=== PATIENT | female | born 1940 | race Caucasian/White ===

== ENCOUNTER 2017-09-10 13:59 | Observation (INO) | payer MEDICARE, BC ==
[2017-09-10] MEDS ORDERED: SODIUM CHLORIDE 0.9% 1,000 ML IV STA (14:17)
[2017-09-10] MEDS ORDERED: SODIUM CHLORIDE 0.9% 500 ML IV STA (14:17)
[2017-09-10 14:32] LABS: Glucose,Whole Blood 96 mg/dL (75-99)
--- NOTE | 2017-09-10 14:40 | ED ---
General Adult HPI - General Chief complaint: Dizziness Stated complaint: Dizziness Time Seen by Provider: 09/10/17 14:17 Source: patient, RN notes reviewed, old records reviewed Mode of arrival: wheelchair Limitations: no limitations - History of Present Illness Initial comments: This is a 76-year-old female the ER for evaluation. Patient presents for evaluation regards to dizziness, ataxia with ambulation. Patient is no medical history states when she walks he feels additional topple over can maintain her balance. The room was not spinning and patient denies headache no nausea or vomiting - Related Data Home Medications Medication Instructions Recorded Confirmed Aspirin EC [Ecotrin] 325 mg PO DAILY PRN 09/10/17 09/10/17 Omeprazole 40 mg PO DAILY 09/10/17 09/10/17 Allergies Allergy/AdvReac Type Severity Reaction Status Date / Time No Known Allergies Allergy Verified 09/10/17 14:22 Review of Systems ROS Statement: Those systems with pertinent positive or pertinent negative responses have been documented in the HPI. ROS Other: All systems not noted in ROS Statement are negative. Past Medical History Past Medical History: No Reported History History of Any Multi-Drug Resistant Organisms: None Reported Past Surgical History: Section, Hysterectomy Past Psychological History: No Psychological Hx Reported Smoking Status: Never smoker Past Alcohol Use History: None Reported Past Drug Use History: None Reported General Exam - General Exam Comments Initial Comments: Heel parra, finger-nose negative, Limitations: no limitations General appearance: alert, in no apparent distress Head exam: Present: atraumatic, normocephalic, normal inspection Eye exam: Present: normal appearance, PERRL, EOMI. Absent: scleral icterus, conjunctival injection, periorbital swelling ENT exam: Present: normal exam, mucous membranes moist Neck exam: Present: normal inspection. Absent: tenderness, meningismus, lymphadenopathy Respiratory exam: Present: normal lung sounds bilaterally. Absent: respiratory distress, wheezes, rales, rhonchi, stridor Cardiovascular Exam: Present: regular rate, normal rhythm, normal heart sounds. Absent: systolic murmur, diastolic murmur, rubs, gallop, clicks GI/Abdominal exam: Present: soft, normal bowel sounds. Absent: distended, tenderness, guarding, rebound, rigid Extremities exam: Present: normal inspection, full ROM, normal capillary refill. Absent: tenderness, pedal edema, joint swelling, calf tenderness Back exam: Present: normal inspection Neurological exam: Present: alert, oriented X3, CN II-XII intact Psychiatric exam: Present: normal affect, normal mood Skin exam: Present: warm, dry, intact, normal color. Absent: rash Course Vital Signs 09/10/17 09/10/17 09/10/17 14:13 15:15 16:00 Temperature 99.0 F Pulse Rate 67 79 73 Respiratory 16 16 Rate Blood Pressure 169/92 181/85 196/91 O2 Sat by Pulse 99 97 99 Oximetry 09/10/17 16:14 Temperature Pulse Rate 80 Respiratory 19 Rate Blood Pressure 198/89 O2 Sat by Pulse 98 Oximetry - Reevaluation(s) Reevaluation #1: 09/10/17 16:35 Patient is able to walk without ataxia EKG Findings - EKG Comments: EKG Findings:: EKG shows sinus rhythm rate of 65, DE 154, QRS 84, QTC 4:30 Medical Decision Making - Medical Decision Making 76 female the ER for evaluation of ataxia and dizziness. Patient be admitted for neurological observation, new onset high blood pressure which she will control and patient will neurological evaluation - Lab Data Result diagrams: 09/10/17 14:30 09/10/17 14:30 Lab Results 09/10/17 09/10/17 09/10/17 Range/Units 14:29 14:30 14:30 WBC 6.6 (3.8-10.6) k/uL RBC 4.53 (3.80-5.40) m/uL Hgb 11.9 (11.4-16.0) gm/dL Hct 37.3 (34.0-46.0) % MCV 82.4 (80.0-100.0) fL MCH 26.3 (25.0-35.0) pg MCHC 31.9 (31.0-37.0) g/dL RDW 14.9 (11.5-15.5) % Plt Count 351 (150-450) k/uL Neutrophils % 69 % Lymphocytes % 20 % Monocytes % 8 % Eosinophils % 1 % Basophils % 1 % Neutrophils # 4.6 (1.3-7.7) k/uL Lymphocytes # 1.3 (1.0-4.8) k/uL Monocytes # 0.5 (0-1.0) k/uL Eosinophils # 0.0 (0-0.7) k/uL Basophils # 0.1 (0-0.2) k/uL PT (9.0-12.0) sec INR (<1.2) APTT (22.0-30.0) sec Sodium (137-145) mmol/L Potassium (3.5-5.1) mmol/L Chloride (98-107) mmol/L Carbon Dioxide (22-30) mmol/L Anion Gap mmol/L BUN (7-17) mg/dL Creatinine (0.52-1.04) mg/dL Est GFR (MDRD) Af Amer (>60 ml/min/1.73 sqM) Est GFR (MDRD) Non-Af (>60 ml/min/1.73 sqM) Glucose (74-99) mg/dL POC Glucose (mg/dL) 96 (75-99) mg/dL POC Glu [employer]ping [employer] Jessa Bosch Calcium (8.4-10.2) mg/dL Phosphorus (2.5-4.5) mg/dL Magnesium (1.6-2.3) mg/dL Total Bilirubin (0.2-1.3) mg/dL AST (14-36) U/L ALT (9-52) U/L Alkaline Phosphatase (38-126) U/L Total Creatine Kinase 99 (30-135) U/L CK-MB (CK-2) 1.2 (0.0-2.4) ng/mL CK-MB (CK-2) Rel Index 1.2 Troponin I <0.012 (0.000-0.034) ng/mL Total Protein (6.3-8.2) g/dL Albumin (3.5-5.0) g/dL Urine Color Urine Appearance (Clear) Urine pH (5.0-8.0) Ur Specific [place] (1.001-1.035) Urine Protein (Negative) Urine Glucose (UA) (Negative) Urine Ketones (Negative) Urine Blood (Negative) Urine Nitrite (Negative) Urine Bilirubin (Negative) Urine Urobilinogen (<2.0) mg/dL Ur Leukocyte Esterase (Negative) Urine RBC (0-5) /hpf Urine WBC (0-5) /hpf Ur Squamous Epith Cells (0-4) /hpf Urine Mucus (None) /hpf 09/10/17 09/10/17 09/10/17 Range/Units 14:30 14:30 15:10 WBC (3.8-10.6) k/uL RBC (3.80-5.40) m/uL Hgb (11.4-16.0) gm/dL Hct (34.0-46.0) % MCV (80.0-100.0) fL MCH (25.0-35.0) pg MCHC (31.0-37.0) g/dL RDW (11.5-15.5) % Plt Count (150-450) k/uL Neutrophils % % Lymphocytes % % Monocytes % % Eosinophils % % Basophils % % Neutrophils # (1.3-7.7) k/uL Lymphocytes # (1.0-4.8) k/uL Monocytes # (0-1.0) k/uL Eosinophils # (0-0.7) k/uL Basophils # (0-0.2) k/uL PT 9.4 (9.0-12.0) sec INR 0.9 (<1.2) APTT 24.0 (22.0-30.0) sec Sodium 140 (137-145) mmol/L Potassium 4.5 (3.5-5.1) mmol/L Chloride 105 (98-107) mmol/L Carbon Dioxide 26 (22-30) mmol/L Anion Gap 9 mmol/L BUN 20 H (7-17) mg/dL Creatinine 1.04 (0.52-1.04) mg/dL Est GFR (MDRD) Af Amer >60 (>60 ml/min/1.73 sqM) Est GFR (MDRD) Non-Af 51 (>60 ml/min/1.73 sqM) Glucose 93 (74-99) mg/dL POC Glucose (mg/dL) (75-99) mg/dL POC Glu [employer]ping [employer] ID Calcium 9.9 (8.4-10.2) mg/dL Phosphorus 3.8 (2.5-4.5) mg/dL Magnesium 2.3 (1.6-2.3) mg/dL Total Bilirubin 0.4 (0.2-1.3) mg/dL AST 24 (14-36) U/L ALT 26 (9-52) U/L Alkaline Phosphatase 84 (38-126) U/L Total Creatine Kinase (30-135) U/L CK-MB (CK-2) (0.0-2.4) ng/mL CK-MB (CK-2) Rel Index Troponin I (0.000-0.034) ng/mL Total Protein 6.8 (6.3-8.2) g/dL Albumin 3.9 (3.5-5.0) g/dL Urine Color Colorless Urine Appearance Clear (Clear) Urine pH 5.5 (5.0-8.0) Ur Specific [place] 1.004 (1.001-1.035) Urine Protein Negative (Negative) Urine Glucose (UA) Negative (Negative) Urine Ketones Negative (Negative) Urine Blood Negative (Negative) Urine Nitrite Negative (Negative) Urine Bilirubin Negative (Negative) Urine Urobilinogen <2.0 (<2.0) mg/dL Ur Leukocyte Esterase Trace H (Negative) Urine RBC 1 (0-5) /hpf Urine WBC 2 (0-5) /hpf Ur Squamous Epith Cells 1 (0-4) /hpf Urine Mucus Rare H (None) /hpf - Radiology Data Radiology results: report reviewed (CT brain is negative for acute disease), image reviewed Disposition Clinical Impression: Dizziness, CVA (cerebral vascular accident), Hypertensive emergency, Ataxia Disposition: ADMITTED IP TO THIS [facility] Condition: Fair Instructions: Dizziness (ED) Referrals: Dony Luis MD [Primary Care Provider] - 1-2 days
[2017-09-10 14:50] LABS: Basophils # (A) 0.1 k/uL (0-0.2); Basophils % (A) 1 %; Eosinophils % (A) 1 %; HCT 37.3 % (34.0-46.0); HGB 11.9 gm/dL (11.4-16.0); Lymphocytes # (A) 1.3 k/uL (1.0-4.8); Lymphocytes % (A) 20 %; MCH 26.3 pg (25.0-35.0); MCHC 31.9 g/dL (31.0-37.0); MCV 82.4 fL (80.0-100.0); Mean Platelet Volume 7.3; Monocytes # (A) 0.5 k/uL (0-1.0); Monocytes % (A) 8 %; Neutrophils # (A) 4.6 k/uL (1.3-7.7); Neutrophils % (A) 69 %; Platelet Count 351 k/uL (150-450); RBC 4.53 m/uL (3.80-5.40); RDW 14.9 % (11.5-15.5); WBC 6.6 k/uL (3.8-10.6)
--- NOTE | 2017-09-10 14:54 | CT ---
EXAMINATION TYPE: CT brain wo con DATE OF EXAM: 09/10/2017 HISTORY: Weakness and dizziness since yesterday. CT DLP: 1123 mGycm. Automated Exposure Control for Dose Reduction was Utilized. TECHNIQUE: CT scan of the head is performed without contrast. COMPARISON: CT scan of brain March 08, 2013 FINDINGS: There is no acute intracranial hemorrhage or midline shift identified. There is diffuse v entricular and sulcal prominence consistent with diffuse age-related cerebral atrophy. There is low- attenuation in the periventricular white matter consistent with chronic small vessel ischemic change. The globes are intact and the visualized sinuses are clear. IMPRESSION: No acute intracranial hemorrhage or midline shift. There is mild to moderate diffuse ag e-related cerebral atrophy and chronic small vessel ischemic change redemonstrated with probable slig ht progression from 2013 [address] noted.
[2017-09-10 14:56] LABS: ALT 26 U/L (9-52); AST 24 U/L (14-36); Albumin 3.9 g/dL (3.5-5.0); Alkaline Phosphatase 84 U/L (38-126); Anion Gap 9 mmol/L; Blood Urea Nitrogen 20 mg/dL (7-17); Calcium 9.9 mg/dL (8.4-10.2); Carbon Dioxide 26 mmol/L (22-30); Chloride 105 mmol/L (98-107); Glucose 93 mg/dL (74-99); Phosphorus 3.8 mg/dL (2.5-4.5); Potassium 4.5 mmol/L (3.5-5.1); Sodium 140 mmol/L (137-145); Total Bilirubin 0.4 mg/dL (0.2-1.3); Total Protein 6.8 g/dL (6.3-8.2)
[2017-09-10 14:57] LABS: INR 0.9 (<1.2); Prothrombin Time 9.4 sec (9.0-12.0)
[2017-09-10 15:13] LABS: Creatine Kinase 99 U/L (30-135)
[2017-09-10 15:20] LABS: Appearance,Urine Clear (Clear); Bilirubin,Urine Negative (Negative); Blood,Urine Negative (Negative); Color,Urine Colorless; Glucose,Urine (UA) Negative (Negative); Ketones,Urine Negative (Negative); Leukocyte Esterase,Urine Trace (Negative); Mucus,Urine Rare /hpf; PH, Urine 5.5 (5.0-8.0); Protein,Urine Negative (Negative); RBC,Urine 1 /hpf (0-5); Specific Gravity,Urine 1.004 (1.001-1.035); Squamous Epithelial Cell,Urine 1 /hpf (0-4); Urobilinogen,Urine <2.0 mg/dL (<2.0); WBC,Urine 2 /hpf (0-5)
[2017-09-10 15:25] LABS: Creatine Kinase MB 1.2 ng/mL (0.0-2.4); Troponin I <0.012 ng/mL (0.000-0.034)
[2017-09-10] MEDS ORDERED: LABETALOL 5 MG/ML VIAL MDV IVP STA (16:14)
[2017-09-10] MEDS ORDERED: ASPIRIN 325 MG TAB PO STA (16:14)
[2017-09-10] MEDS: SODIUM CHLORIDE 0.9% 1,000 ML IV SCH (16:20)
[2017-09-10] MEDS: METOPROLOL TARTRATE 50 MG TAB PO SCH (18:29)
--- NOTE | 2017-09-10 20:57 | US ---
EXAMINATION TYPE: US carotid duplex BILAT DATE OF EXAM: 09/10/2017 COMPARISON: NONE CLINICAL HISTORY: Stenosis. Dizziness EXAM MEASUREMENTS: RIGHT: Peak Systolic Velocity (PSV) cm/sec ----- Right CCA: 62.2 ----- Right ICA: 136.8 ----- Right ECA: 81.0 ICA/CCA ratio: 2.2 RIGHT: End Diastole cm/sec ----- Right CCA: 19.3 ----- Right ICA: 41.2 ----- Right ECA: 13.9 LEFT: Peak Systolic Velocity (PSV) cm/sec ----- Left CCA: 83.2 ----- Left ICA: 89.8 ----- Left ECA: 79.9 ICA/CCA ratio: 1.1 LEFT: End Diastole cm/sec ----- Left CCA: 20.5 ----- Left ICA: 35.9 ----- Left ECA: 11.7 VERTEBRALS (direction of flow): Right Vertebral: Antegrade Left Vertebral: Antegrade Rhythm: Normal Bilateral intimal thickening, elevated velocity: right distal ICA, right ICA/CCA ratio 2.2. IMPRESSION: There is antegrade flow in the vertebral arteries. The images and measurements suggest 3 0-40% stenosis in the left internal carotid artery and 50-70% stenosis in the right internal carotid artery. Criteria for Assigning % of Stenosis / Diameter reduction (Estimation based on the indirect measurements of the internal carotid artery velocities (ICA PSV). 1. Normal (no stenosis)=ICA PSV < 125 cm/s: ratio < 2.0: ICA EDV<40 cm/s. 2. Less than 50% stenosis=ICA PSV < 125 cm/s: ratio < 2.0: ICA EDV<40 cm/s. 3. 50 to 69% stenosis=ICA PSV of 125 to 230 cm/s: ration 2.0 ? 4.0: ICA EDV 40-100 cm/s. 4. Greater than 70% stenosis to near occlusion= ICA PSV > 230 cm/s: ratio > 4.0: ICA EDV > 100 cm/s. 5. Near occlusion= ICA PSV velocities may be low or undetectable: variable ratio and ICA EDV. 6. Total occlusion=unable to detect flow.
[2017-09-11 06:13] LABS: Cholesterol 197 mg/dL (<200); HDL Cholesterol 53 mg/dL (40-60); LDL Cholesterol,Calculated 115 mg/dL (0-99); Triglycerides 146 mg/dL (<150)
[2017-09-11] MEDS: SODIUM CHLORIDE 0.9% 1,000 ML IV SCH (06:30)
[2017-09-11 08:38] VITALS: RESP 16
[2017-09-11] MEDS: METOPROLOL TARTRATE 50 MG TAB PO SCH (08:45)
[2017-09-11] MEDS ORDERED: ASPIRIN 325 MG TAB PO SCH (09:00)
[2017-09-11] MEDS ORDERED: PANTOPRAZOLE 40 MG TABLET PO SCH (09:00)
[2017-09-11 11:29] VITALS: PULSE 55; TEMP 98.3
--- NOTE | 2017-09-11 11:36 | P.HPIM ---
History of Present Illness H&P Date: 09/11/17 Chief Complaint: Ataxia HISTORY AND PHYSICAL AND DISCHARGE SUMMARY: This is a 76-year-old female patient of Dr. Luis with past medical history of gastroesophageal reflux. Patient gives history that she has had problems with balance since that lasted for about a half hour. She states her gait was staggering like she was drunk. She laid down and then it was fine. She states otherwise she has had no other difficulties. On Wednesday, she was out shopping with her friend and started having the same sensation again with staggering gait and her friend told her she needed to have it checked. She denies having any fall, dizziness is denied. She denies any weakness or 1 sided weakness. No lightheadedness. No numbness or tingling. No racing heart or palpitations. She denies headache. No shortness of breath cough or chest pain. She denies any fever or chills. Patient presented to [facility] emergency center with the above. Blood pressure was high and patient does not have history of hypertension. EKG was a sinus rhythm. CBC and electrolytes were within normal limits. Creatinine 1.04. Blood sugar was 96. Troponin was normal at 0.012. Liver function tests within normal limits. Urinalysis was negative. CT of the brain showed no acute intracranial hemorrhage or midline shift. Mild to moderate diffuse age-related history of atrophy and chronic small vessel ischemic change redemonstrated with probable slight progression since 2012. Carotid duplex suggests 30-40% stenosis in the left internal carotid artery and 50-7 in the right internal carotid artery. Patient was given aspirin, labetalol 20 mg IV push and started on IV fluids and admitted to the selective care unit and consult was requested with Dr. Yi from neurology. PT, OT and speech therapy evaluations requested. 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 HER-2 sons are staying with him right now but she needs to get home. She has been ambulating in her room with no further problems. She states she has never had elevated blood pressure before. Patient had repeat EKG done that showed sinus bradycardia. No atrial fibrillation noted. Triglycerides 146, cholesterol 197, LDL 1:15 and HDL 53. We have asked for echocardiogram and started the patient on amlodipine versus Lopressor and plan for discharge home today once echocardiogram has been done. Patient is agreeable to follow-up with vascular surgeon regarding carotid stenosis and also follow-up with Dr. Yi regarding possible TIA. Discharge Medication List Aspirin EC [Ecotrin] 325 mg PO DAILY PRN 09/10/17 [History] Omeprazole 40 mg PO DAILY 09/10/17 [History] Aspirin EC [Ecotrin Low Dose] 81 mg PO DAILY #30 tablet. 09/11/17 [Rx] Atorvastatin [Lipitor] 40 mg PO DAILY #30 tablet 09/11/17 [Rx] amLODIPine [Norvasc] 5 mg PO DAILY #30 tab 09/11/17 [Rx] Review of Systems All systems: negative Constitutional: Denies anorexia, Denies chills, Denies fatigue, Denies fever, Denies lethargy, Denies malaise, Denies night sweats, Denies poor appetite, Denies sweats, Denies weakness, Denies weight loss Eyes: denies blurred vision, denies pain Ears, nose, mouth and throat: Denies dental pain, Denies headache, Denies hoarseness, Denies mouth pain, Denies sore throat, Denies vertigo Cardiovascular: Reports high blood pressure, Denies chest pain, Denies decreased exercise tolerance, Denies dyspnea on exertion, Denies edema, Denies irregular heart beat, Denies leg edema, Denies lightheadedness, Denies orthopnea , Denies palpitations, Denies paroxysmal nocturnal dyspnea, Denies shortness of breath, Denies syncope Respiratory: Denies cough, Denies cough with sputum, Denies dyspnea, Denies excessive sputum, Denies hemoptysis, Denies home oxygen, Denies wheezing Gastrointestinal: Denies abdominal pain, Denies diarrhea, Denies nausea, Denies vomiting Genitourinary: Denies dysuria, Denies hematuria Musculoskeletal: Reports gait dysfunction, Denies arm numbness/tingling, Denies frequent falls, Denies leg numbness/tingling, Denies low back pain, Denies muscle cramps, Denies muscle weakness, Denies myalgias Integumentary: Denies pruritus, Denies rash, Denies wounds Neurological: Denies numbness, Denies weakness Psychiatric: Denies anxiety, Denies depression Endocrine: Denies fatigue, Denies weight change Past Medical History Past Medical History: GERD/Reflux, Hypertension Additional Past Medical History / Comment(s): CATARACTS History of Any Multi-Drug Resistant Organisms: None Reported Past Surgical History: Appendectomy, Breast Surgery, Section, Hysterectomy Additional Past Surgical History / Comment(s): BREAST REDUCTION SX, COLONOSOCPY/ EGD Past Anesthesia/Blood Transfusion Reactions: Postoperative Nausea & Vomiting ( PONV) Smoking Status: Never smoker Additional Past Alcohol Use History / Comment(s): Patient is a lifelong nonsmoker. No marijuana or alcohol use. - Past Family History Father Family Medical History: Cancer Additional Family Medical History / Comment(s): Father at age 85 from colon cancer. Mother Family Medical History: No Reported History Additional Family Medical History / Comment(s): WAS HEALTHY-LIVED TO BE 89 Sister(s) Additional Family Medical History / Comment(s): Patient had one sister that from a female cancer. One sister is alive at age 98 with no major medical problems. Patient has 4 children and one from liver cancer. 3 others have no major medical problems. Medications and Allergies Home Medications Medication Instructions Recorded Confirmed Type Aspirin EC [Ecotrin] 325 mg PO DAILY PRN 09/10/17 09/10/17 History Omeprazole 40 mg PO DAILY 09/10/17 09/10/17 History Atorvastatin [Lipitor] 40 mg PO DAILY #30 tablet 09/11/17 Rx amLODIPine [Norvasc] 5 mg PO DAILY #30 tab 09/11/17 Rx Allergies Allergy/AdvReac Type Severity Reaction Status Date / Time No Known Allergies Allergy Verified 09/10/17 14:22 Physical Exam Vitals: Vital Signs Temp Pulse Pulse Resp BP BP Pulse Ox 09/11/17 08:00 99.0 F 67 16 132/65 97 09/11/17 05:49 64 18 137/71 97 09/11/17 03:39 66 18 09/11/17 03:15 66 18 145/68 99 09/10/17 23:45 62 18 09/10/17 23:40 98.1 F 62 18 105/54 97 09/10/17 20:30 97.7 F 64 18 118/72 96 09/10/17 18:54 98.0 F 62 16 158/79 98 09/10/17 17:00 74 16 167/85 95 09/10/17 16:14 80 19 198/89 98 09/10/17 16:00 73 16 196/91 99 09/10/17 15:15 79 181/85 97 09/10/17 14:13 99.0 F 67 16 169/92 99 Intake and Output 09/10/17 09/11/17 09/11/17 22:59 06:59 14:59 Intake Total 1140 Output Total 150 Balance 990 Intake: Intake, IV Titration 800 Amount Sodium Chloride 0.9% 1, 800 000 ml @ 100 mls/hr IV . Q10H VIKTOR Rx#:[id number] Oral 340 Output: Urine 150 Other: Voiding Method Toilet # Voids 1 3 Weight 81.1 kg Gen: This is a 76-year-old female patient. She is sitting up in bed and appears to be comfortable and in no acute distress. HEENT: Head is atraumatic, normocephalic. Pupils equal, round. Sclerae is anicteric. NECK: Supple. No JVD. No lymphadenopathy. No thyromegaly. LUNGS: Clear to auscultation. No wheezes or rhonchi. No intercostal retractions. HEART: Regular rate and rhythm. No murmur. ABDOMEN: Soft. Bowel sounds are present. No masses. No tenderness. EXTREMITIES: No pedal edema. No calf tenderness. NEUROLOGICAL: Patient is awake, alert and oriented x3. Cranial nerves 2 through 12 are grossly intact. Patient has no focal neural deficits. 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 Equal strength to both lower extremities. Results CBC & Chem 7: 09/10/17 14:30 09/10/17 14:30 Labs: Abnormal Lab Results - Last 24 Hours (Table) 09/10/17 09/10/17 09/11/17 Range/Units 14:30 15:10 05:46 BUN 20 H (7-17) mg/dL LDL Cholesterol, Calc 115 H (0-99) mg/dL Ur Leukocyte Esterase Trace H (Negative) Urine Mucus Rare H (None) /hpf Microbiology - Last 24 Hours (Table) 09/10/17 15:10 Urine Culture - Preliminary Urine,Clean Catch Thrombosis Risk Factor Assmnt - DVT/VTE Prophylaxis DVT/VTE Prophylaxis: Mechanical Prophylaxis ordered Assessment and Plan Plan: 1. Ataxia secondary to possible TIA, hypertension-uncontrolled,and carotid stenosis. Patient continued on aspirin, Lipitor and Norvasc consult with Dr. Yi, PT, OT, speech therapy evaluations. Echocardiogram ordered 2. Uncontrolled hypertension, new diagnoses. Patient started on amlodipine 5 mg daily. 3. Gastroesophageal reflux disease. Omeprazole. 4. DVT prophylaxis. Early ambulation. Patient placed as an observation status. Discharge plan: Return home Impression and plan of care have been directed as dictated by the signing physician. Daysi Win nurse practitioner acting as scribe for signing physician.
--- NOTE | 2017-09-11 11:53 | P.CNNES ---
History of Present Illness Consult date: 09/11/17 Reason for Consult: Patient with gait ataxia and possible stroke. History of Present Illness: This patient is a 76-year-old right-handed white female who was followed in the outpatient medical clinic with Dr. Luis. Patient states that she awoke on and noted that she was having great difficulty walking. She was very much off balance and could not move from room to room at home. Apparently this episode lasted several hours and seemed to slowly dissipate. Yesterday the symptoms recurred and she was again having great difficulty with ambulation and she was slightly ataxic. Her friend told her she should go to the hospital for evaluation. Patient states she did not experience any vertigo in the room was not spinning at all for her during these episodes. She has no previous history of vertigo or similar episodes in the past. She does take one aspirin daily but otherwise has no other major medical issues. Apparently the episode yesterday lasted about 2 hours and slowly improved. She did not experience any other symptoms such as slurred speech, vision loss, or focal weakness. She has no previous history of TIA or stroke. She was brought into the emergency room yesterday for evaluation at [facility]. She was seen in the ER by Dr. Rollins. She was sent for a computed tomography scan of the brain yesterday which revealed no acute intracranial hemorrhage or midline shift. There was [id number]-rvixynfk diffuse age-related atrophy and small vessel ischemic changes noted unchanged from 2013. The patient was advised admission to the hospital. 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 we would recommend she have a follow-up with vascular surgery regarding these findings. The patient states she has not seen Dr. espñaa in over a year. We would recommend she should follow-up with him. The patient states she does have history of hyperlipidemia in the past but is not on any statin drug. At this time we have recommended the patient should have an MRI of the brain to further evaluate for brainstem ischemia. This also could be related to cerebellar ischemia. We have explained these findings in detail with the patient today. Apparently she was seen by the admitting physician Dr. Bridges earlier this morning who is recommending discharge for the patient today after her echocardiogram study. Apparently the patient needs to go home to take care of her who suffers from advanced dementia. Since she is being discharged today we would recommend that she should have the MRI of the brain done on 09/13/2017 as an outpatient. We will put in an order for the MRI to be done. We would recommend that she should have a lipid panel done as well and should be maintained on aspirin daily. Patient may follow-up in the outpatient neurology clinic with her MRI results in 3 weeks. Patient states she has been up and ambulating today in her room and has not had any recurrence of acute ataxia. Her symptoms do suggest possibility of TIA. We're waiting her echocardiogram results and after this study she is being considered for discharge home. Patient is to continue on aspirin daily for secondary stroke prevention. The patient is now admitted and neurology has been consulted for further evaluation and recommendations. Review of Systems Constitutional: Denies chills, Denies fever Eyes: denies blurred vision, denies pain Ears, nose, mouth and throat: Denies headache, Denies sore throat Cardiovascular: Denies chest pain, Denies shortness of breath Respiratory: Denies cough Gastrointestinal: Denies abdominal pain, Denies diarrhea, Denies nausea, Denies vomiting Genitourinary: Denies dysuria, Denies hematuria Musculoskeletal: Denies myalgias Integumentary: Denies pruritus, Denies rash Neurological: Reports balance difficulties, Reports gait dysfunction, Reports lack of coordination, Denies numbness, Denies weakness Psychiatric: Denies anxiety, Denies depression Endocrine: Denies fatigue, Denies weight change Past Medical History Past Medical History: GERD/Reflux Additional Past Medical History / Comment(s): CATARACTS History of Any Multi-Drug Resistant Organisms: None Reported Past Surgical History: Appendectomy, Breast Surgery, Section, Hysterectomy Additional Past Surgical History / Comment(s): BREAST REDUCTION SX, COLONOSOCPY/ EGD Past Anesthesia/Blood Transfusion Reactions: Postoperative Nausea & Vomiting ( PONV) Smoking Status: Never smoker - Past Family History Father Family Medical History: Cancer Additional Family Medical History / Comment(s): COLON CANCER Mother Family Medical History: No Reported History Additional Family Medical History / Comment(s): WAS HEALTHY-LIVED TO BE 89 Sister(s) Additional Family Medical History / Comment(s): Patient had one sister that from a female cancer. One sister is alive at age 98 with no major medical problems. Patient has 4 children and one from liver cancer. 3 others have no major medical problems. Medications and Allergies Home Medications Medication Instructions Recorded Confirmed Type Aspirin EC [Ecotrin] 325 mg PO DAILY PRN 09/10/17 09/10/17 History Omeprazole 40 mg PO DAILY 09/10/17 09/10/17 History Aspirin EC [Ecotrin Low Dose] 81 mg PO DAILY #30 tablet. 09/11/17 Rx Atorvastatin [Lipitor] 40 mg PO DAILY #30 tablet 09/11/17 Rx amLODIPine [Norvasc] 5 mg PO DAILY #30 tab 09/11/17 Rx Allergies Allergy/AdvReac Type Severity Reaction Status Date / Time No Known Allergies Allergy Verified 09/10/17 14:22 Physical Examination - Vital Signs Vital Signs: Vital Signs Temp Pulse Pulse Resp BP BP Pulse Ox 09/11/17 08:00 99.0 F 67 16 132/65 97 09/11/17 05:49 64 18 137/71 97 09/11/17 03:39 66 18 09/11/17 03:15 66 18 145/68 99 09/10/17 23:45 62 18 09/10/17 23:40 98.1 F 62 18 105/54 97 09/10/17 20:30 97.7 F 64 18 118/72 96 09/10/17 18:54 98.0 F 62 16 158/79 98 09/10/17 17:00 74 16 167/85 95 09/10/17 16:14 80 19 198/89 98 09/10/17 16:00 73 16 196/91 99 09/10/17 15:15 79 181/85 97 09/10/17 14:13 99.0 F 67 16 169/92 99 Intake and Output 09/10/17 09/11/17 09/11/17 22:59 06:59 14:59 Intake Total 1140 Output Total 150 Balance 990 Intake: Intake, IV Titration 800 Amount Sodium Chloride 0.9% 1, 800 000 ml @ 100 mls/hr IV . Q10H [facility] Rx#:[id number] Oral 340 Output: Urine 150 Other: Voiding Method Toilet # Voids 1 3 Weight 81.1 kg - Constitutional General appearance: average body habitus, cooperative - EENT EENT: PERRL, mucous membranes moist - Respiratory Respiratory: lungs clear, normal breath sounds - Cardiovascular Cardiovascular: regular rate, normal S1, normal S2 Extremities: no peripheral edema bilaterally - Gastrointestinal Gastrointestinal: normoactive bowel sounds - Integumentary Integumentary: normal - Neurologic Cranial nerve examination: PERRL, EOMI, VFF, V1/V2/V3 grossly intact, face symmetric, tongue midline, intact gag reflex, intact corneal reflex, normal palatal elevation Speech examination: intact Sensorimotor examination: intact Motor examination - right side: 4/5: biceps, triceps, wrist flexion, wrist extension, home care chaplain, hip flexors, knee extensors, dorsiflexion, toe extension (EHL) , plantarflexion Motor examination - left side: 4/5: biceps, triceps, wrist flexion, wrist extension, home care chaplain, hip flexors, knee extensors, dorsiflexion, toe extension (EHL) , plantarflexion Detailed sensory examination: intact Reflex and gait examination: intact Reflexes: 1+: ankle, bicep, knee, tricep - Musculoskeletal Musculoskeletal: no pain - Psychiatric Psychiatric: mood/affect appropriate, cooperative Results - Laboratory Findings CBC and BMP: 09/10/17 14:30 09/10/17 14:30 Abnormal Lab Findings: Abnormal Labs 09/10/17 09/10/17 09/11/17 14:30 15:10 05:46 BUN 20 H LDL Cholesterol, Calc 115 H Ur Leukocyte Esterase Trace H Urine Mucus Rare H Assessment and Plan (1) Ataxic gait Current Visit: Yes Status: Acute Code(s): R26.0 - ATAXIC GAIT SNOMED Code( s): 17393509 (2) Vertebrobasilar insufficiency Current Visit: Yes Status: Acute Code(s): G45.0 - VERTEBRO-BASILAR ARTERY SYNDROME SNOMED Code(s): 08070721 (3) Hyperlipidemia Current Visit: Yes Status: Acute Code(s): E78.5 - HYPERLIPIDEMIA, UNSPECIFIED SNOMED Code(s): 73897840 (4) Hypertensive emergency Current Visit: Yes Status: Acute Code(s): I16.1 - HYPERTENSIVE EMERGENCY SNOMED Code(s): 228884047646774 Plan: This patient is a 76-year-old female who was followed in the outpatient medical clinic with Dr. Luis. She was admitted to hospital yesterday with symptoms of gait ataxia. Symptoms started on and resolved after 4 hours. The symptoms recurred yesterday and lasted for 2 hours in which she was very unsteady and unable to ambulate. She did not have any symptoms of vertigo or dizziness. She was unable to ambulate and had to hold onto the yeboah. Her symptoms did gradually improve since admission. She is now been able to get up and walk in the room and hallway without feeling ataxic. Patient was seen in the emergency room and underwent a computed tomography scan of the brain and carotid Doppler study both of which are noted above. We are recommending that she should have an MRI of the brain done which will be scheduled for her as outpatient and she may follow-up in the neurology clinic following these test results. The patient is to be maintained on aspirin daily for secondary stroke prevention. Patient was seen by Dr. Bridges who is recommending discharge of the patient home today. As noted she should follow-up in the outpatient neurology clinic in 3-4 weeks. Her overall prognosis at this time remains guarded. Time with Patient: Greater than 30
[2017-09-11 13:20] VITALS: BP 143/83
[2017-09-12] MEDS ORDERED: amLODIPine 5 MG TAB PO SCH (09:30)
--- NOTE | 2017-09-12 13:31 | ECHOF ---
Referral Reason:LVF MEASUREMENTS -------- HEIGHT: 165.1 cm WEIGHT: 80.7 kg BP: 132/65 RVIDd: 3.2 cm (< 3.3) IVSd: 1.1 cm (0.6 - 1.1) LVIDd: 5.0 cm (3.9 - 5.3) LVPWd: 1.1 cm (0.6 - 1.1) IVSs: 1.4 cm LVIDs: 3.6 cm LVPWs: 1.4 cm LAESV Index (A-L): 23.10 ml/m Ao Diam: 2.9 cm (2.0 - 3.7) AV Cusp: 1.3 cm (1.5 - 2.6) LA Diam: 4.4 cm (2.7 - 3.8) EPSS: 0.6 cm MV E Christopher: 0.51 m/s MV DecT: 326 ms MV A Christopher: 0.60 m/s MV E/A Ratio: 0.84 RAP: 5.00 mmHg RVSP: 38.52 mmHg MV EF SLOPE: 129.12 mm/s (70 - 150) MV EXCURSION: 2.25 cm (> 18.000) FINDINGS -------- Resting bradycardia (HR<60bpm). This was a technically adequate study. The left ventricular size is normal. There is borderline concentric left ventricular hypertrophy. Overall left ventricular systolic function is normal with, an EF between 55 - 60 %. The right ventricle is normal in size and function. Normal LA size by volume 22+/-6 ml/m2. The right atrium is normal in size. The aortic valve is trileaflet, and appears structurally normal. No aortic stenosis or regurgitation. The mitral valve leaflets are mildly thickened. There is trace to mild mitral regurgitation. Mild tricuspid regurgitation present. There is borderline pulmonary hypertension. The right ventr icular systolic pressure, as measured by Doppler, is 38.52mmHg. Trace/mild (physiologic) pulmonic regurgitation. The aortic root size is normal. Normal inferior vena cava with normal inspiratory collapse consistent with estimated right atrial pre ssure of 5 mmHg. The pericardium is normal. There is no pericardial effusion. CONCLUSIONS -------- 1. Resting bradycardia (HR<60bpm). 2. This was a technically adequate study. 3. The left ventricular size is normal. 4. There is borderline concentric left ventricular hypertrophy. 5. Overall left ventricular systolic function is normal with, an EF between 55 - 60 %. 6. Normal LA size by volume 22+/-6 ml/m2. 7. The aortic valve is trileaflet, and appears structurally normal. No aortic stenosis or regurgitati on. 8. The mitral valve leaflets are mildly thickened. 9. There is trace to mild mitral regurgitation. 10. Mild tricuspid regurgitation present. 11. There is borderline pulmonary hypertension. 12. The right ventricular systolic pressure, as measured by Doppler, is 38.52mmHg. 13. Trace/mild (physiologic) pulmonic regurgitation. 14. The aortic root size is normal. 15. There is no pericardial effusion. CERTIFIED SHORTHAND REPORTER: Meño Warner RDCS
== END 2017-09-11 13:48 | disposition home or self-care (01) ==
LOC: EC 13:59 → 3OBS 16:15 → 6SEL 17:34
PROVIDERS: ADMIT Internal Medicine; ATTEND Internal Medicine
DX: R27.0 Ataxia, unspecified (principal); R42 Dizziness and giddiness; I10 Essential (primary) hypertension; I65.23 Occlusion and stenosis of bilateral carotid arteries; I16.1 Hypertensive emergency; K21.9 Gastro-esophageal reflux disease without esophagitis; Z79.899 Other long term (current) drug therapy; Z80.0 Family history of malignant neoplasm of digestive organs; Z80.8 Family history of malignant neoplasm of other organs or systems; E78.5 Hyperlipidemia, unspecified
CPT/HCPCS: 99285; 96360 ×2; 36415; 93005; 93306; 97161; 80061; 80053; 82550; 82553; 83735; 84100; 84484; 85025; 85610; 85730; 81001; 87086; 87077; 87186; 93880; 70450; G0378 ×2

== ENCOUNTER → 2017-10-04 | Outpatient (CLI) | payer MEDICARE, BC ==
--- NOTE | 2017-10-04 20:46 | MR ---
EXAMINATION TYPE: MR brain wo con DATE OF EXAM: 10/04/2017 COMPARISON: CT brain September 10, 2017. HISTORY: Prior CT on synapse, no prior MR, ataxic gait per order. TECHNIQUE: Multiplanar, multisequence imaging of the brain and brainstem is performed without IV cont rast. FINDINGS: Diffusion weighted images demonstrate no evidence of a recent infarct or other diffusion abnormality. There is no worrisome extra-axial fluid collection. There is ventricular and sulcal prominence consis tent with diffuse cerebral atrophy. There are focal and confluent areas of T2 hyperintensity seen in the superficial, deep, and periventricular white matter. Midline structures demonstrate normal morphology. The craniocervical junction appears within normal limits. Normal vascular flow voids are present. There is severe mucosal thickening involving inferior right maxillary sinus. There is mild to moderate mucosal thickening involving inferior left maxillar y sinus. There is mild mucosal thickening involving anterior ethmoid sinuses bilaterally, right great er than left. Globes are intact bilaterally. IMPRESSION: 1. No evidence of a recent infarct. 2. There is mild to moderate diffuse cerebral atrophy and moderate to severe chronic small vessel isc hemic change. 3. Chronic paranasal sinus disease as detailed above.
== END | disposition home or self-care (01) ==
LOC: RADMRIMAIN 16:13
PROVIDERS: ATTEND Psychiatry & Neurology Neurology
DX: G31.9 Degenerative disease of nervous system, unspecified (principal); I67.82 Cerebral ischemia
CPT/HCPCS: 70551

== ENCOUNTER → 2020-11-25 | Outpatient (CLI) | payer BC, MEDICARE ==
--- NOTE | 2020-11-25 13:01 | ECHOF ---
Referral Reason:R01.1 Cardiac Murmur MEASUREMENTS -------- HEIGHT: 154.9 cm WEIGHT: 78.9 kg BP: RVIDd: 3.1 cm (< 3.3) IVSd: 1.5 cm (0.6 - 1.1) LVIDd: 5.0 cm (3.9 - 5.3) LVPWd: 1.5 cm (0.6 - 1.1) IVSs: 1.6 cm LVIDs: 3.5 cm LVPWs: 2.1 cm LAESV Index (A-L): 54.75 ml/m Ao Diam: 3.0 cm (2.0 - 3.7) AV Cusp: 1.4 cm (1.5 - 2.6) LA Diam: 4.3 cm (2.7 - 3.8) MV EXCURSION: 22.198 mm (> 18.000) MV EF SLOPE: 223 mm/s (70 - 150) EPSS: 1.0 cm MV E Christopher: 0.69 m/s MV DecT: 167 ms MV A Christopher: 0.94 m/s MV E/A Ratio: 0.74 AV maxP.37 mmHg AV meanP.86 mmHg RAP: 5.00 mmHg RVSP: 40.43 mmHg FINDINGS -------- Sinus rhythm. This was a technically adequate study. The left ventricular size is normal. There is moderate concentric left ventricular hypertrophy. O verall left ventricular systolic function is low-normal with, an EF between 50 - 55 %. Increased La p Grade II Diastolic Dysfunction. The right ventricle is normal in size. LA is severely dilated >40 ml/m2 The right atrial size is normal. Interatrial and interventricular septum intact. There is moderate aortic valve sclerosis. There is no evidence of aortic regurgitation. There is no evidence of aortic stenosis. Moderate mitral regurgitation is present. Phmx-sn-ghgxzfba tricuspid regurgitation present. There is mild to moderate pulmonary hypertension. The right ventricular systolic pressure, as measured by Doppler, is 40.43mmHg. Trace/mild (physiologic) pulmonic regurgitation. The aortic root size is normal. Normal inferior vena cava with normal inspiratory collapse consistent with estimated right atrial pre ssure of 5 mmHg. There is a small pericardial effusion is located near the right atrium. CONCLUSIONS -------- 1. The left ventricular size is normal. 2. There is moderate concentric left ventricular hypertrophy. 3. Overall left ventricular systolic function is low-normal with, an EF between 50 - 55 %. 4. Increased Lap Grade II Diastolic Dysfunction. 5. LA is severely dilated >40 ml/m2 6. There is moderate aortic valve sclerosis. 7. Moderate mitral regurgitation is present. 8. Vbwb-id-icocmxbe tricuspid regurgitation present. 9. There is mild to moderate pulmonary hypertension. 10. The right ventricular systolic pressure, as measured by Doppler, is 40.43mmHg. 11. Trace/mild (physiologic) pulmonic regurgitation. 12. There is a small pericardial effusion is located near the right atrium. SAFETY ENGINEER: Mare Altamirano RDCS
== END | disposition home or self-care (01) ==
LOC: RADECHMAIN 07:54
PROVIDERS: ATTEND Family Medicine
DX: I08.3 Combined rheumatic disorders of mitral, aortic and tricuspid valves (principal); J98.4 Other disorders of lung; I27.20 Pulmonary hypertension, unspecified; I31.3 Pericardial effusion (noninflammatory)
CPT/HCPCS: 93306

== ENCOUNTER 2021-01-17 07:25 | Day surgery (SDC) | payer MEDICARE ==
[2021-01-16 09:21] VITALS: BMI 32.8
[2021-01-17] MEDS ORDERED: SODIUM CHLORIDE 0.9% 500 ML 500 ML IV ONE (07:46)
[2021-01-17 08:07] VITALS: RESP 16; TEMP 98.5
[2021-01-17] MEDS ORDERED: fentaNYL (PF) 50 MCG/ML 2 ML AMP ONE (08:48)
[2021-01-17] MEDS: BENZOCAINE SPRAY 1 CAN TOPICAL ONE ×2 (08:52→09:01)
[2021-01-17] MEDS ORDERED: MIDAZOLAM 2 MG/2 ML VIAL IV ONE (09:07)
[2021-01-17] MEDS ORDERED: fentaNYL (PF) 50 MCG/ML 2 ML AMP IV ONE (09:07)
[2021-01-17] MEDS ORDERED: hydrALAZINE HCL 20 MG/ML 1 ML VIAL IV ONE (09:15)
[2021-01-17] MEDS ORDERED: hydrALAZINE HCL 20 MG/ML 1 ML VIAL ONE (09:16)
[2021-01-17] MEDS ORDERED: SODIUM CHLORIDE 0.9% 1,000 ML IV SCH (09:30)
--- NOTE | 2021-01-17 11:43 | ECHOT ---
TRANSESOPHAGEAL ECHOCARDIOGRAM INDICATION: Mitral regurgitation. PROCEDURE NOTE: After obtaining informed consent, transesophageal echocardiogram is performed in left lateral position using Omni plane probe. Local and IV sedation were obtained using Xylocaine spray, 1 mg of Versed and 50 mcg of fentanyl. She tolerated the procedure well without any obvious immediate complications. The patient received moderate conscious sedation. Total sedation time was 7 minutes. FINDINGS: Mitral valve appears anatomically normal. There is dilatation of the mitral anulus with mild central mitral regurgitation. Left atrium appears severely enlarged. Right atrium and right ventricle appear mildly enlarged. Left ventricle has normal size and systolic function. Interatrial septum: There is evidence of dhno-ap-kyhbb shunt on color-flow Doppler. There is no evidence of kaixm-xk-ijzi shunt by agitated saline contrast study. The aortic valve is a 3-leaflet valve. There is no evidence of aortic stenosis or regurgitation. Aorta appears normal. CONCLUSION: 1. Mild mitral regurgitation. 2. Small atrial septal defect with qvsy-fo-vmyez shunt. The patient's blood pressure is elevated. She is not on any medications. I am going to start her on Norvasc 10 mg daily. The patient will follow up with me. MMODL / IJN: [id number] /
[2021-01-17 14:42] VITALS: BP 141/70; PULSE 78
== END 2021-01-17 10:39 | disposition home or self-care (01) ==
LOC: CATHCVL 07:25
PROVIDERS: ATTEND Internal Medicine Cardiovascular Disease
DX: I34.0 Nonrheumatic mitral (valve) insufficiency (principal); Q21.1 Atrial septal defect; R03.0 Elevated blood-pressure reading, without diagnosis of hypertension; D64.9 Anemia, unspecified
CPT/HCPCS: 93312; 93320; 93325; J2250; J0360; J3010

== ENCOUNTER 2021-03-17 11:06 | Emergency (ER) | payer MEDICARE ==
[2021-03-17 11:26] VITALS: BP 139/85; PULSE 85; RESP 20; TEMP 99.1
[2021-03-17] MEDS ORDERED: ACETAMINOPHEN TAB 325 MG TAB PO STA (11:53)
[2021-03-17] MEDS ORDERED: ONDANSETRON ODT 4 MG TAB PO STA (11:53)
--- NOTE | 2021-03-17 11:54 | ED ---
General Adult HPI - General Chief complaint: ENT Stated complaint: Sore throat Time Seen by Provider: 03/17/21 11:28 Source: patient Mode of arrival: ambulatory Limitations: no limitations - History of Present Illness Initial comments: 80-year-old female presents to the emergency room for a chief complaint of not feeling well. Patient states that since Wednesday or the past 3 days she has had a sore throat. States it worsens at night. Patient states she has also had a cough. She has been congested. Patient states she was supposed to work today but cannot go because she does not feel well. Patient denies any shortness of breath or chest pain. Patient has been taking aspirin for the throat pain and states it is also making her nauseous. Patient has no other complaints at this time including shortness of breath, chest pain, abdominal pain, nausea or vomiting, headache, or visual changes. - Related Data Home Medications Medication Instructions Recorded Confirmed Ferrous Sulfate [Feosol] 325 mg PO DAILY 01/16/21 01/17/21 Previous Rx's Medication Instructions Recorded Benzonatate [Tessalon Perles] 200 mg PO Q8H PRN #15 cap 03/17/21 guaiFENesin [Mucinex] 600 mg PO Q12HR PRN #20 tab 03/17/21 Allergies Allergy/AdvReac Type Severity Reaction Status Date / Time No Known Allergies Allergy Verified 03/17/21 11:26 Review of Systems ROS Statement: Those systems with pertinent positive or pertinent negative responses have been documented in the HPI. ROS Other: All systems not noted in ROS Statement are negative. Past Medical History Past Medical History: GERD/Reflux Additional Past Medical History / Comment(s): CATARACTS History of Any Multi-Drug Resistant Organisms: None Reported Past Surgical History: Appendectomy, Breast Surgery, Section, Hysterectomy Additional Past Surgical History / Comment(s): BREAST REDUCTION SX, COLONOSOCPY/EGD Past Anesthesia/Blood Transfusion Reactions: Postoperative Nausea & Vomiting (PONV) Past Psychological History: No Psychological Hx Reported Smoking Status: Never smoker Past Alcohol Use History: None Reported Past Drug Use History: None Reported - Past Family History Father Family Medical History: Cancer Additional Family Medical History / Comment(s): COLON CANCER Mother Family Medical History: No Reported History Additional Family Medical History / Comment(s): WAS HEALTHY-LIVED TO BE 89 Sister(s) Additional Family Medical History / Comment(s): Patient had one sister that from a female cancer. One sister is alive at age 98 with no major medical problems. Patient has 4 children and one from liver cancer. 3 others have no major medical problems. General Exam Limitations: no limitations General appearance: alert, in no apparent distress Head exam: Absent: atraumatic Eye exam: Present: normal appearance, PERRL, EOMI. Absent: scleral icterus, conjunctival injection ENT exam: Present: normal exam, normal oropharynx (Uvula midline, no tonsillar exudates bilaterally), mucous membranes moist Neck exam: Present: normal inspection, full ROM. Absent: tenderness Respiratory exam: Present: normal lung sounds bilaterally. Absent: respiratory distress, wheezes Cardiovascular Exam: Present: regular rate, normal rhythm, normal heart sounds GI/Abdominal exam: Present: soft, normal bowel sounds. Absent: distended, tenderness Neurological exam: Present: alert Course Vital Signs 03/17/21 11:23 Temperature 99.1 F Pulse Rate 85 Respiratory 20 Rate Blood Pressure 139/85 O2 Sat by Pulse 97 Oximetry Medical Decision Making - Medical Decision Making Vitals are stable. Patient is well-appearing. Patient has not felt well since Wednesday but is supposed to work so presented to the ER for a work note. 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 HPI and physical exam as documented. coronavirus was negative. Strep negative. Chest x-ray shows no acute process. Patient will be treated with supportive medication. Patient will follow up with her doctor. Patient will return here for any worsening symptoms. - Lab Data Lab Results 03/17/21 03/17/21 Range/Units 11:36 11:41 Coronavirus (PCR) Not Detected (Not Detectd) Group A Strep Rapid Negative (Negative) Disposition Clinical Impression: Pharyngitis, Congestion of nasal sinus, Cough Disposition: HOME SELF-CARE Condition: Good Instructions (If sedation given, give patient instructions): Acute Cough (ED) Additional Instructions: Take Tylenol for pain. Take Tessalon Perles for cough and Mucinex for congestion. Follow up with primary care. Return to the emergency room for any worsening symptoms. Prescriptions: guaiFENesin [Mucinex] 600 mg PO Q12HR PRN #20 tab PRN Reason: Congestion Benzonatate [Tessalon Perles] 200 mg PO Q8H PRN #15 cap PRN Reason: Cough Is patient prescribed a controlled substance at d/c from ED?: No Referrals: Emily Kline MD [Primary Care Provider] - 1-2 days Time of Disposition: 12:40
--- NOTE | 2021-03-17 12:13 | XR ---
EXAMINATION TYPE: XR chest 1V portable DATE OF EXAM: 03/17/2021 HISTORY: Shortness of breath. COMPARISON: None. TECHNIQUE: Single view of the chest is submitted. FINDINGS: Demonstrated are scattered senescent parenchymal change. There is no evidence for focal infiltrate. The heart is stable. Hilar and mediastinal structures are within normal limits. Degenerative changes are seen of the dorsal spine. IMPRESSION: 1. Chronic changes without evidence for acute pulmonary disease.
== END 2021-03-17 13:24 | disposition home or self-care (01) ==
LOC: EC 11:06
DX: J02.9 Acute pharyngitis, unspecified (principal); R09.81 Nasal congestion; K21.9 Gastro-esophageal reflux disease without esophagitis; Z90.49 Acquired absence of other specified parts of digestive tract; Z20.822 Contact with and (suspected) exposure to COVID-19
CPT/HCPCS: 71045; 87081; 87430; 87635; 99283

== ENCOUNTER → 2021-10-29 | Outpatient (CLI) | payer MEDICARE ==
--- NOTE | 2021-10-29 14:54 | MM ---
Reason for exam: additional evaluation requested from abnormal screening. Last mammogram was performed less than 1 month ago. History: Patient is postmenopausal. Reductions of both breasts, 2001. Benign excisional biopsy of the right breast, September 14, 2000. Physical Findings: A clinical breast exam by your physician is recommended on an annual basis and results should be correlated with mammographic findings. MG 3D Work Up W/Cad RT Spot compression CC, spot compression MLO, and LM view(s) were taken of the right breast. Prior study comparison: October 15, 2021, bilateral MG 3d screening mammo w/cad. March 10, 2016, bilateral MG screening mammo w CAD. Stable nodule measuring 5.4mm at 2-3 o'clock right breast, 4cm from nipple. Results were given to the patient verbally at the time of the exam. ASSESSMENT: Incomplete: need additional imaging evaluation, BI-RAD 0 RECOMMENDATION: Ultrasound of the right breast.
--- NOTE | 2021-10-29 14:55 | USB ---
Reason for exam: additional evaluation requested from abnormal screening. History: Patient is postmenopausal. Reductions of both breasts, 2001. Benign excisional biopsy of the right breast, September 14, 2000. Physical Findings: A clinical breast exam by your physician is recommended on an annual basis and results should be correlated with mammographic findings. US Breast Workup Limited RT Right limited breast ultrasound including focal area of concern, retroareolar and axilla demonstrates a 0.5 x 0.4 x 0.5cm cystic lesion at 3 o'clock, 3cm from nipple. Results were given to the patient verbally at the time of the exam. ASSESSMENT: Benign, BI-RAD 2 RECOMMENDATION: Return to routine screening mammogram schedule for both breasts.
== END | disposition home or self-care (01) ==
LOC: RADMAMWWP 13:08
PROVIDERS: ATTEND Family Medicine
DX: R92.8 Other abnormal and inconclusive findings on diagnostic imaging of breast (principal); Z78.0 Asymptomatic menopausal state
CPT/HCPCS: 77065; 76642; G0279; 77061

== ENCOUNTER 2022-03-13 08:50 | Emergency (ER) | payer MEDICARE ==
[2022-03-13] MEDS ORDERED: DEXAMETHASONE SOD PHOSPHATE 10 MG/ML 1 ML VIAL IM STA (09:03)
--- NOTE | 2022-03-13 09:08 | ED ---
General Adult HPI - General Chief complaint: ENT Stated complaint: Fever,Sore throat,Cough Time Seen by Provider: 03/13/22 08:58 Source: patient, RN notes reviewed, old records reviewed Mode of arrival: ambulatory Limitations: no limitations - History of Present Illness Initial comments: This is a well-appearing 81-year-old female that presents ambulatory with complaints of sore throat, cough and fever since Wednesday. She denies any chest pain or difficulty breathing. Patient states her temperature was 103 yesterday. She has been taking Tylenol and aspirin with some relief. She has been vaccinated and boosted against coronavirus. She denies any other medical history. She does not take any medicine on a daily basis. She is a nonsmoker. -: days(s) (4) Location: mouth (sore throat) Radiation: non-radiation Severity scale (1-10): 0 Quality: other (sore) Consistency: now resolved Improves with: other (tylenol aspirin) Associated Symptoms: cough, fever/chills (103.) Treatments Prior to Arrival: none (Tylenol and aspirin) - Related Data Home Medications Medication Instructions Recorded Confirmed Ferrous Sulfate [Feosol] 325 mg PO DAILY 01/16/21 01/17/21 Previous Rx's Medication Instructions Recorded Benzonatate [Tessalon Perles] 200 mg PO Q8H PRN #15 cap 03/17/21 guaiFENesin [Mucinex] 600 mg PO Q12HR PRN #20 tab 03/17/21 Ondansetron Odt [Zofran Odt] 4 mg PO Q8HR PRN #10 tab 03/13/22 Allergies Allergy/AdvReac Type Severity Reaction Status Date / Time No Known Allergies Allergy Verified 03/13/22 08:55 Review of Systems ROS Statement: Those systems with pertinent positive or pertinent negative responses have been documented in the HPI. ROS Other: All systems not noted in ROS Statement are negative. Past Medical History Past Medical History: GERD/Reflux Additional Past Medical History / Comment(s): CATARACTS History of Any Multi-Drug Resistant Organisms: None Reported Past Surgical History: Appendectomy, Breast Surgery, Section, Hysterectomy Additional Past Surgical History / Comment(s): BREAST REDUCTION SX, COLONOSOCPY/EGD Past Anesthesia/Blood Transfusion Reactions: Postoperative Nausea & Vomiting (PONV) Past Psychological History: No Psychological Hx Reported Smoking Status: Never smoker Past Alcohol Use History: None Reported Past Drug Use History: None Reported - Past Family History Father Family Medical History: Cancer Additional Family Medical History / Comment(s): COLON CANCER Mother Family Medical History: No Reported History Additional Family Medical History / Comment(s): WAS HEALTHY-LIVED TO BE 89 Sister(s) Additional Family Medical History / Comment(s): Patient had one sister that from a female cancer. One sister is alive at age 98 with no major medical problems. Patient has 4 children and one from liver cancer. 3 others have no major medical problems. General Exam Limitations: no limitations General appearance: alert, in no apparent distress Head exam: Present: atraumatic Eye exam: Present: normal appearance, EOMI. Absent: scleral icterus, conjunctival injection, nystagmus, periorbital swelling ENT exam: Present: normal oropharynx, mucous membranes moist Expanded Mouth exam: Present: tongue normal, tongue elevation. Absent: drooling, trismus, muffled voice Throat exam: negative: tonsillar erythema, tonsillar exudate, R peritonsillar mass, L peritonsillar mass Neck exam: Present: thyromegaly. Absent: meningismus Respiratory exam: Present: wheezes. Absent: respiratory distress, chest wall tenderness, accessory muscle use Cardiovascular Exam: Present: regular rate GI/Abdominal exam: Present: soft. Absent: distended Extremities exam: Present: normal capillary refill. Absent: tenderness, pedal edema Back exam: Absent: tenderness, rash noted Neurological exam: Present: alert, oriented X3, normal gait Psychiatric exam: Present: normal affect, normal mood Skin exam: Present: warm, dry, normal color. Absent: cyanosis, diaphoretic, petechiae Course Vital Signs 03/13/22 03/13/22 03/13/22 08:52 09:24 09:38 Temperature 98.8 F Pulse Rate 74 67 Respiratory 20 18 16 Rate Blood Pressure 139/74 137/68 O2 Sat by Pulse 97 96 Oximetry 03/13/22 03/13/22 09:59 11:31 Temperature 97.1 F L Pulse Rate 61 72 Respiratory 16 18 Rate Blood Pressure 147/75 139/63 O2 Sat by Pulse 96 96 Oximetry - Reevaluation(s) Reevaluation #1: 03/13/22 09:43 Called into the patient's room by nurse. Patient became dizzy and had a syncopal episode. She became incontinent of bladder. Episode approximately 1 minute and then patient was arousable. She started to vomit bilious emesis. Speech is slurred. Patient was sent to CAT scan and EKG was performed. Dr. Santana was notified. Time: 09:43 EKG Findings - EKG Results: EKG: sinus rhythm (Ventricular rate 61, [place] interval 0.173, QRS 0.85, QTC 0.412) Medical Decision Making - Medical Decision Making Patient presents with sore throat and cough since Wednesday with a fever of 103 yesterday. She has been vaccinated and boosted against coronavirus. She states that she does not take any medication on a daily basis. Sh Patient did have a syncopal episode in the emergency room after receiving a Decadron shot. She states that she became dizzy and ambulated to the garbage can to vomit after her injection when she had a syncopal episode in the nurse's arms. She did not fall or hit her head. She did vomit bilious emesis immediately after episode and was incontinent of urine. Patient is coronavirus positive. X-ray shows no acute cardiopulmonary process. There is evidence of hiatal hernia. After syncopal episode EKG, labs and CT were ordered. Dr. Santana at bedside. EKG shows sinus rhythm no ectopy, no ST elevation or acute changes compared to old. CT brain without contrast shows degenerative and nonspecific white matter change most remote ischemia. No acute hemorrhage, midline shift or mass affect. This is likely a vasovagal episode after medication administration. She has no residual symptoms and is feeling better at this time. Her initial symptoms are likely related to the coronavirus. She was offered Paxlovid and declined at this time. She was given a prescription for Zofran for nausea. Encouraged to take vitamin C and vitamin D. She states that she has terrible side effects when she takes zinc. She was directed to follow up with her primary care doctor on Wednesday return to the emergency room with any new or concerning symptoms. She is agreeable to this plan of care. Vital signs are stable at discharge. Case discussed with Dr. Santana. - Lab Data Result diagrams: 03/13/22 09:49 03/13/22 09:49 Lab Results 0903/13/22 03/13/22 Range/Units 09:24 09:49 09:49 WBC 9.4 (3.8-10.6) k/uL RBC 4.72 (3.80-5.40) m/uL Hgb 13.8 (11.4-16.0) gm/dL Hct 43.0 (34.0-46.0) % MCV 91.2 (80.0-100.0) fL MCH 29.2 (25.0-35.0) pg MCHC 32.0 (31.0-37.0) g/dL RDW 14.5 (11.5-15.5) % Plt Count 259 (150-450) k/uL MPV 8.2 Neutrophils % 58 % Lymphocytes % 23 % Monocytes % 13 % Eosinophils % 0 % Basophils % 1 % Neutrophils # 5.5 (1.3-7.7) k/uL Lymphocytes # 2.2 (1.0-4.8) k/uL Monocytes # 1.2 H (0-1.0) k/uL Eosinophils # 0.0 (0-0.7) k/uL Basophils # 0.1 (0-0.2) k/uL PT 9.6 (9.0-12.0) sec INR 0.9 (<1.2) APTT 26.0 (22.0-30.0) sec D-Dimer 0.55 (<0.60) mg/L FEU Sodium (137-145) mmol/L Potassium (3.5-5.1) mmol/L Chloride (98-107) mmol/L Carbon Dioxide (22-30) mmol/L Anion Gap mmol/L BUN (7-17) mg/dL Creatinine (0.52-1.04) mg/dL Est GFR (CKD-EPI)AfAm (>60 ml/min/1.73 sqM) Est GFR (CKD-EPI)NonAf (>60 ml/min/1.73 sqM) Glucose (74-99) mg/dL POC Glucose (mg/dL) (70-110) mg/dL POC Glu Boning Room Worker ID Calcium (8.4-10.2) mg/dL Magnesium (1.6-2.3) mg/dL Total Bilirubin (0.2-1.3) mg/dL AST (14-36) U/L ALT (4-34) U/L Alkaline Phosphatase (38-126) U/L Troponin I (0.000-0.034) ng/mL Total Protein (6.3-8.2) g/dL Albumin (3.5-5.0) g/dL Coronavirus (PCR) Detected A (Not Detectd) 03/13/22 03/13/22 03/13/22 Range/Units 09:49 09:49 09:53 WBC (3.8-10.6) k/uL RBC (3.80-5.40) m/uL Hgb (11.4-16.0) gm/dL Hct (34.0-46.0) % MCV (80.0-100.0) fL MCH (25.0-35.0) pg MCHC (31.0-37.0) g/dL RDW (11.5-15.5) % Plt Count (150-450) k/uL MPV Neutrophils % % Lymphocytes % % Monocytes % % Eosinophils % % Basophils % % Neutrophils # (1.3-7.7) k/uL Lymphocytes # (1.0-4.8) k/uL Monocytes # (0-1.0) k/uL Eosinophils # (0-0.7) k/uL Basophils # (0-0.2) k/uL PT (9.0-12.0) sec INR (<1.2) APTT (22.0-30.0) sec D-Dimer (<0.60) mg/L FEU Sodium 139 (137-145) mmol/L Potassium 4.6 (3.5-5.1) mmol/L Chloride 109 H (98-107) mmol/L Carbon Dioxide 20 L (22-30) mmol/L Anion Gap 10 mmol/L BUN 18 H (7-17) mg/dL Creatinine 1.18 H (0.52-1.04) mg/dL Est GFR (CKD-EPI)AfAm 50 (>60 ml/min/1.73 sqM) Est GFR (CKD-EPI)NonAf 43 (>60 ml/min/1.73 sqM) Glucose 98 (74-99) mg/dL POC Glucose (mg/dL) 96 (70-110) mg/dL POC Glu Boning Room Worker ID Carl Mann Calcium 8.5 (8.4-10.2) mg/dL Magnesium 1.9 (1.6-2.3) mg/dL Total Bilirubin 0.2 (0.2-1.3) mg/dL AST 36 (14-36) U/L ALT 22 (4-34) U/L Alkaline Phosphatase 148 H (38-126) U/L Troponin I <0.012 (0.000-0.034) ng/mL Total Protein 6.2 L (6.3-8.2) g/dL Albumin 3.6 (3.5-5.0) g/dL Coronavirus (PCR) (Not Detectd) Disposition Clinical Impression: COVID-19, Vasovagal syncope Disposition: HOME SELF-CARE Condition: Good Instructions (If sedation given, give patient instructions): Syncope (ED), COVID-19 (Coronavirus Disease 2019) (ED) Additional Instructions: Increase your fluid intake. Take vitamin C and vitamin D to improve your immune health. You can take Zofran as needed for any nausea. Self quarantine for 10 days from symptom onset. If after 5 days you have no further symptoms, you can go into public wearing just a mask for the remaining 5 days. Return to the emergency room with any new or concerning symptoms. Follow-up with your primary care doctor next week. Prescriptions: Ondansetron Odt [Zofran Odt] 4 mg PO Q8HR PRN #10 tab PRN Reason: Nausea Is patient prescribed a controlled substance at d/c from ED?: No Referrals: Emily Kline MD [Primary Care Provider] - 1-2 days Time of Disposition: 11:22
--- NOTE | 2022-03-13 09:44 | XR ---
EXAMINATION TYPE: XR chest 2V DATE OF EXAM: 03/13/2022 COMPARISON: 03/17/2021 INDICATION: Fever, cough TECHNIQUE: Frontal and lateral views of the chest are obtained. FINDINGS: The heart size is normal. The pulmonary vasculature is normal. The lungs are clear. Hiatal hernia is present. IMPRESSION: 1. No acute pulmonary process. 2. Hiatal hernia
[2022-03-13 09:55] LABS: Glucose,Whole Blood 96 mg/dL (70-110)
[2022-03-13] MEDS ORDERED: ONDANSETRON 4 MG/2 ML VIAL IVP STA (10:22)
[2022-03-13] MEDS ORDERED: SODIUM CHLORIDE 0.9% 500 ML 500 ML IV ONE (10:22)
--- NOTE | 2022-03-13 10:26 | CT ---
EXAMINATION TYPE: CT brain wo con DATE OF EXAM: 03/13/2022 COMPARISON: Syncope HISTORY: ams, syncope CT DLP: 1084.4 mGycm Automated exposure control for dose reduction was used. FINDINGS: Moderate generalized degenerative change with low attenuation in the white matter which is nonspecifi c but most typical of remote ischemia. No midline shift or mass effect. No acute hemorrhage. Craniocervical junction maintained. Orbits are symmetric. Calvarium intact. Changes of mild chronic s inusitis. A partially empty sella turcica. IMPRESSION: DEGENERATIVE AND NONSPECIFIC WHITE MATTER CHANGE MOST REMOTE ISCHEMIA.
[2022-03-13 10:33] LABS: Basophils # (A) 0.1 k/uL (0-0.2); Basophils % (A) 1 %; Eosinophils % (A) 0 %; HGB 13.8 gm/dL (11.4-16.0); Lymphocytes # (A) 2.2 k/uL (1.0-4.8); Lymphocytes % (A) 23 %; MCH 29.2 pg (25.0-35.0); MCV 91.2 fL (80.0-100.0); Mean Platelet Volume 8.2; Monocytes # (A) 1.2 k/uL (0-1.0); Monocytes % (A) 13 %; Neutrophils # (A) 5.5 k/uL (1.3-7.7); Neutrophils % (A) 58 %; Platelet Count 259 k/uL (150-450); RBC 4.72 m/uL (3.80-5.40); RDW 14.5 % (11.5-15.5); WBC 9.4 k/uL (3.8-10.6)
[2022-03-13 10:38] LABS: INR 0.9 (<1.2); Prothrombin Time 9.6 sec (9.0-12.0)
[2022-03-13 10:56] LABS: Albumin 3.6 g/dL (3.5-5.0); Calcium 8.5 mg/dL (8.4-10.2); Magnesium 1.9 mg/dL (1.6-2.3); Potassium 4.6 mmol/L (3.5-5.1); Total Bilirubin 0.2 mg/dL (0.2-1.3); Total Protein 6.2 g/dL (6.3-8.2)
[2022-03-13 11:35] VITALS: BP 139/63; PULSE 72; RESP 18; TEMP 97.1
== END 2022-03-13 11:39 | disposition home or self-care (01) ==
LOC: EC 08:50
DX: U07.1 COVID-19 (principal); R55 Syncope and collapse; K21.9 Gastro-esophageal reflux disease without esophagitis; Z79.899 Other long term (current) drug therapy
CPT/HCPCS: 36415; 93005; 85379; 80053; 83735; 84484; 85025; 85610; 85730; 87635; 71046; 70450; 99284; 96374; 96372; J1100; J2405

== ENCOUNTER 2022-07-02 10:53 | Emergency (ER) | payer MEDICARE ==
[2022-07-02] MEDS ORDERED: MECLIZINE 12.5 MG TAB PO STA (11:20)
[2022-07-02] MEDS ORDERED: SODIUM CHLORIDE 0.9% 500 ML 500 ML IV STA (11:20)
--- NOTE | 2022-07-02 11:27 | ED ---
Dizziness HPI - General Chief Complaint: Dizziness Stated Complaint: dizziness Time Seen by Provider: 07/02/22 11:08 Source: patient, family (Daughter), RN notes reviewed, old records reviewed Mode of arrival: wheelchair Limitations: no limitations - History of Present Illness Initial Comments: This is a well-appearing 81-year-old female that presents to the emergency room with complaints of sudden onset of dizziness and near syncope while at work [employer]. Patient states that she had been standing when the dizziness came on suddenly, she thought she was going to fall or pass out. Denies any fevers, no chest pain or shortness of breath. No recent sick contacts. States that she has no medical history other than anemia. Takes iron and vitamins daily no other medications. MD Complaint: dizziness, near syncope -: hour(s) Timing: sudden onset, intermittent, waxing/waning Description: "room spinning", off-balance, difficulty walking, near-syncope History of Same: No History of Trauma: No Improves With: remaining still Worsens With: movement Associated Symptoms: denies other symptoms - Related Data Home Medications Medication Instructions Recorded Confirmed Ferrous Sulfate [Feosol] 325 mg PO DAILY 01/16/21 07/02/22 Multivitamins, Thera [Multivitamin 1 tab PO DAILY 07/02/22 07/02/22 (formulary)] Previous Rx's Medication Instructions Recorded Meclizine [Antivert] 25 mg PO TID PRN #15 tab 07/02/22 Allergies Allergy/AdvReac Type Severity Reaction Status Date / Time No Known Allergies Allergy Verified 07/02/22 11:34 Review of Systems ROS Statement: Those systems with pertinent positive or pertinent negative responses have been documented in the HPI. ROS Other: All systems not noted in ROS Statement are negative. Past Medical History Past Medical History: GERD/Reflux Additional Past Medical History / Comment(s): CATARACTS History of Any Multi-Drug Resistant Organisms: None Reported Past Surgical History: Appendectomy, Breast Surgery, Section, Hysterectomy Additional Past Surgical History / Comment(s): BREAST REDUCTION SX, COLONOSOCPY/EGD Past Anesthesia/Blood Transfusion Reactions: Postoperative Nausea & Vomiting (PONV) Past Psychological History: No Psychological Hx Reported Smoking Status: Never smoker Past Alcohol Use History: None Reported Past Drug Use History: None Reported - Past Family History Father Family Medical History: Cancer Additional Family Medical History / Comment(s): COLON CANCER Mother Family Medical History: No Reported History Additional Family Medical History / Comment(s): WAS HEALTHY-LIVED TO BE 89 Sister(s) Additional Family Medical History / Comment(s): Patient had one sister that from a female cancer. One sister is alive at age 98 with no major medical problems. Patient has 4 children and one from liver cancer. 3 others have no major medical problems. General Exam Limitations: no limitations General appearance: alert, in no apparent distress Head exam: Present: atraumatic, normocephalic, normal inspection Eye exam: Present: normal appearance, EOMI. Absent: scleral icterus, conjunctival injection, nystagmus, periorbital swelling, periorbital tenderness ENT exam: Present: normal oropharynx, mucous membranes moist Expanded Mouth exam: Present: normal external inspection, tongue normal, tongue elevation. Absent: drooling, trismus, muffled voice Throat exam: normal inspection. negative: tonsillar erythema Neck exam: Present: full ROM. Absent: tenderness, meningismus, lymphadenopathy Respiratory exam: Absent: respiratory distress, accessory muscle use Cardiovascular Exam: Present: regular rate GI/Abdominal exam: Present: soft. Absent: distended, tenderness, rigid Extremities exam: Present: normal capillary refill. Absent: tenderness, pedal edema Neurological exam: Present: alert, oriented X3, CN II-XII intact Expanded Neurological exam: Present: other (Rapid hand movements normal) Patient oriented to: Present: person, place, time Speech: Present: fluid speech Cranial nerves: EOM's Intact: Normal, Gag Reflex: Normal, Tongue Deviation: Normal, Nystagmus: Normal Cerebellar function: Finger to Nose: Normal, Heel to [place]: Normal Eye Response: (4) open spontaneously Motor Response: (6) obeys commands Verbal Response: (5) oriented Randy Total: 15 Psychiatric exam: Present: normal affect, normal mood Skin exam: Present: warm, dry, normal color. Absent: cyanosis, diaphoretic, petechiae, pallor, mottled Course Vital Signs 07/02/22 07/02/22 11:00 15:01 Temperature 98.4 F 98.1 F Pulse Rate 85 81 Respiratory 20 18 Rate Blood Pressure 154/78 181/85 O2 Sat by Pulse 99 98 Oximetry EKG Findings - EKG Results: EKG: sinus rhythm (Ventricular rate 71, [place] interval 0.178, QRS 0.87, QTC 0.389; normal axis) Medical Decision Making - Medical Decision Making CT brain shows degenerative and nonspecific white matter changes typical of remote ischemia no acute hemorrhage or mass effect. CT angiogram head and neck was performed mild plaque in the right carotid system, right vertebral artery appears unremarkable. Mild plaque left common carotid artery. Left vertebral artery appears unremarkable. Impression no significant production to account for patient's symptoms. No significant abnormality. Labs show no evidence of leukocytosis. Creatinine1.14 and GFR 45 which is consistent with previous reading of 1.18 and 43 in March of this year Vital signs are stable. Patient was given IV fluids and Antivert with relief of her symptoms of dizziness. She will be discharged home with Antivert, directed to change her position slowly. Not to operate machinery or drive when taking this medication or until dizziness has resolved for 24 hours. Patient and daughter at bedside agreeable to this plan of care. Case was discussed with Dr. Castro. Was pt. sent in by a medical professional or institution? @ -No Did you speak to anyone other than the patient for history? @ -Family at bedside Did you review nursing and triage notes? @ -Agree Were old charts reviewed? @ -No Differential Diagnosis? @ -Differential Dizziness: Benign paroxysmal positional Vertigo, Menieres disease, otitis media, acoustic neuroma, vertebrobasilar insufficiency, cerebellar stroke, encephalitis, hypovolemic, arrhythmia, coronary artery syndrome, anemia, this is not meant to be an all-inclusive list EKG interpreted by me (3pts min.)? @ -Yes X-rays interpreted by me (1pt min.)? @ -Yes, no evidence of consolidation or infiltrate CT interpreted by me (1pt min.)? @ -Yes, no evidence of intracranial hemorrhage, mass or bleed U/S interpreted by me (1pt. min.)? @ -Not applicable What testing was considered but not performed? (CT, X-rays, U/S, labs)? Why? @ None What meds were considered but not given? Why? @ -None Did you discuss the management of the patient with other professionals? @ -No Did you reconcile home meds? @ -No Was smoking cessation discussed for >3mins.? @ -Not applicable Was critical care preformed (if so, how long)? @ -No Were there social determinants of health that impacted care today? How? (Homelessness, low income, unemployed, alcoholism, drug addiction, transportation, low edu. Level, literacy, decrease access to med. care, [facility], rehab)? @ -None Was there de-escalation of care discussed even if they declined? (Discuss DNR or withdrawal of care, Hospice)? @ -Not applicable What co-morbidities impacted this encounter? (DM, HTN, Smoking, COPD, CAD, Cancer, CVA, Hep., AIDS, mental health diagnosis, sleep apnea, morbid obesity)? @ -None Was patient admitted / discharged? @ -Discharged Undiagnosed new problem with uncertain prognosis? @ -Peripheral vertigo Drug Therapy requiring intensive monitoring for toxicity (Heparin, Nitro, Insulin, Cardizem)? @ -None Were any procedures done? @ -None Diagnosis/symptom? @ -Peripheral vertigo, near syncope Acute, or Chronic, or Acute on Chronic? @ -Acute Uncomplicated (without systemic symptoms) or Complicated (systemic symptoms)? @ -Uncomplicated Side effects of treatment? @ -[none] Exacerbation, Progression, or Severe Exacerbation] @ -[no] Poses a threat to life or bodily function? @ -[no] - Lab Data Result diagrams: 07/02/22 11:30 07/02/22 11:30 Lab Results 07/02/22 07/02/22 07/02/22 Range/Units 11:30 11:30 11:30 WBC 6.1 (3.8-10.6) k/uL RBC 4.47 (3.80-5.40) m/uL Hgb 12.7 (11.4-16.0) gm/dL Hct 40.3 (34.0-46.0) % MCV 90.1 (80.0-100.0) fL MCH 28.3 (25.0-35.0) pg MCHC 31.4 (31.0-37.0) g/dL RDW 13.9 (11.5-15.5) % Plt Count 347 (150-450) k/uL MPV 8.5 Neutrophils % 65 % Lymphocytes % 21 % Monocytes % 9 % Eosinophils % 1 % Basophils % 1 % Neutrophils # 4.0 (1.3-7.7) k/uL Lymphocytes # 1.3 (1.0-4.8) k/uL Monocytes # 0.5 (0-1.0) k/uL Eosinophils # 0.1 (0-0.7) k/uL Basophils # 0.1 (0-0.2) k/uL Sodium 138 (137-145) mmol/L Potassium 4.4 (3.5-5.1) mmol/L Chloride 106 (98-107) mmol/L Carbon Dioxide 27 (22-30) mmol/L Anion Gap 5 mmol/L BUN 14 (7-17) mg/dL Creatinine 1.14 H (0.52-1.04) mg/dL Est GFR (CKD-EPI)AfAm 52 (>60 ml/min/1.73 sqM) Est GFR (CKD-EPI)NonAf 45 (>60 ml/min/1.73 sqM) Glucose 100 H (74-99) mg/dL Calcium 9.0 (8.4-10.2) mg/dL Total Bilirubin 0.4 (0.2-1.3) mg/dL AST 26 (14-36) U/L ALT 17 (4-34) U/L Alkaline Phosphatase 106 (38-126) U/L Troponin I <0.012 (0.000-0.034) ng/mL Total Protein 6.8 (6.3-8.2) g/dL Albumin 4.0 (3.5-5.0) g/dL Disposition Clinical Impression: Peripheral vertigo Disposition: HOME SELF-CARE Condition: Good Instructions (If sedation given, give patient instructions): Vertigo (ED) Additional Instructions: Increase your fluid intake. Change positions slowly. Take Antivert for any dizziness as directed. Do not drive or operate heavy machinery while her having these episodes of dizziness. Follow-up with your primary care doctor on Wednesday. Return to the emergency room with any new or concerning symptoms. Prescriptions: Meclizine [Antivert] 25 mg PO TID PRN #15 tab PRN Reason: Vertigo Is patient prescribed a controlled substance at d/c from ED?: No Referrals: Emily Kline MD [Primary Care Provider] - 1-2 days Time of Disposition: 14:46
[2022-07-02 11:53] LABS: Basophils # (A) 0.1 k/uL (0-0.2); Basophils % (A) 1 %; Eosinophils # (A) 0.1 k/uL (0-0.7); Eosinophils % (A) 1 %; HCT 40.3 % (34.0-46.0); HGB 12.7 gm/dL (11.4-16.0); Lymphocytes # (A) 1.3 k/uL (1.0-4.8); Lymphocytes % (A) 21 %; MCH 28.3 pg (25.0-35.0); MCHC 31.4 g/dL (31.0-37.0); MCV 90.1 fL (80.0-100.0); Mean Platelet Volume 8.5; Monocytes # (A) 0.5 k/uL (0-1.0); Monocytes % (A) 9 %; Neutrophils % (A) 65 %; Platelet Count 347 k/uL (150-450); RBC 4.47 m/uL (3.80-5.40); RDW 13.9 % (11.5-15.5); WBC 6.1 k/uL (3.8-10.6)
[2022-07-02 12:10] LABS: Potassium 4.4 mmol/L (3.5-5.1); Total Bilirubin 0.4 mg/dL (0.2-1.3); Total Protein 6.8 g/dL (6.3-8.2)
--- NOTE | 2022-07-02 12:19 | XR ---
EXAMINATION TYPE: XR chest 2V DATE OF EXAM: 07/02/2022 COMPARISON: 03/13/2022 HISTORY: 81-year-old female near-syncope, lightheaded TECHNIQUE: PA and lateral views FINDINGS: Heart upper limits of normal in size. Mild interstitial prominence of the chronic appearance. There i s eventration of the anterior hemidiaphragm. Dense atherosclerotic calcifications noted within the vi sualized abdominal aorta. Accentuated thoracic kyphosis. Strandy atelectasis in the lower lungs. Roun ded retrocardiac density appears to have been present on the prior exam. Correlating with the 02/28/[address], we note the presence of a hiatal hernia. IMPRESSION: Chronic changes. Some strandy atelectasis in the lower lungs. There is at least a moderate-sized hiat al hernia. No definite acute process.
--- NOTE | 2022-07-02 14:13 | CT ---
EXAMINATION TYPE: CT brain wo con DATE OF EXAM: 07/02/2022 COMPARISON: 03/13/2022 HISTORY: c/o dizziness CT DLP: 1098.6 mGycm Automated exposure control for dose reduction was used. FINDINGS: Moderate generalized degenerative change with nonspecific white matter changes bilaterally similar to prior exam. No acute hemorrhage, mass effect or midline shift. Calvarium intact. Craniocervical junction maintained. Sinuses are clear. Orbits are symmetric. Partia lly empty sella turcica. IMPRESSION: DEGENERATIVE AND NONSPECIFIC WHITE MATTER CHANGES MOST TYPICAL OF REMOTE ISCHEMIA. NO ACUTE HEMORRHAG E OR MASS EFFECT.
--- NOTE | 2022-07-02 14:41 | CT ---
EXAMINATION TYPE: CT angio head neck DATE OF EXAM: 07/02/2022 COMPARISON: None HISTORY: dizziness CT DLP: 337.4 mGycm CONTRAST: Performed with IV Contrast, patient injected with 65cc mL of Isovue 370. Combination Contrast CTA cervical carotids and [place] CTA cervical carotids with 3-D recons truction Contrast CTA of the cervical carotids was performed 3-D reconstruction imaging obtained at a separate workstation. Right carotid system: Mild plaque is seen of the right common carotid artery. There is mild plaque a lso noted at the carotid bulb and proximal ICA. No significant diameter reduction. ECA is patent. Right vertebral artery appears unremarkable. Left carotid system: Mild plaque is seen of the left common carotid artery. There is mild plaque als o noted at the carotid bulb and proximal ICA. No significant diameter reduction. ECA is patent. Lef t vertebral artery appears unremarkable. IMPRESSION: 1. No significant diameter reduction to account for the patient's symptoms. CTA [place] with 3-D reconstruction Contrast CTA of the [place] was performed 3-D reconstruction imaging obtained at a separate workstation. Vertebrobasilar system as well as intracranial portions of the internal carotid arteries and their [place] tributaries are patent. I do not see evidence for sizable aneurysm or vascular malformation. Pl ease note MRI provides greater sensitivity and specificity. Visualized brain appears grossly unremar kable. IMPRESSION: 1. No significant abnormality. NASCET criteria was used in interpretation of this exam?
[2022-07-02 15:08] VITALS: BP 181/85; PULSE 81; RESP 18; TEMP 98.1
== END 2022-07-02 15:13 | disposition home or self-care (01) ==
LOC: EC 10:53
DX: H81.399 Other peripheral vertigo, unspecified ear (principal)
CPT/HCPCS: 99284 ×2; 96360 ×2; 96361 ×3; 36415; 93005; 80053; 84484; 85025; 71046; 70496; 70450; 70498; Q9967

== ENCOUNTER → 2022-10-21 | Outpatient (CLI) | payer MEDICARE ==
--- NOTE | 2022-10-22 17:17 | MM ---
Reason for Exam: Screening (asymptomatic). Last screening mammogram was performed 12 month(s) ago. Patient History: Menarche at age 11. First Full-Term at age 16. Left ovary removed at age 46. Right ovary removed at age 46. Hysterectomy at age 46. Postmenopausal. 2001, Bilateral Reduction. 09/14/2000, Benign Excisional Biopsy on the right side. Risk Values: Mily 5 year model risk: 1.3%. NCI Lifetime model risk: 1.6%. Prior Study Comparison: 03/10/2016 Bilateral Screening Mammogram, LOCATED WITHIN [facility]. 10/15/2021 Bilateral Screening Mammogram, LOCATED WITHIN [facility]. 10/29/2021 Right Diagnostic Mammogram, LOCATED WITHIN [facility]. Tissue Density: There are scattered fibroglandular densities. Findings: Analyzed By CAD. Pattern appears symmetrical and stable. Multiple benign vascular calcifications are present bilaterally. No suspicious groups of microcalcifications, spiculated or lobular masses, architectural distortion or other secondary signs of malignancy are mammographically apparent. Overall Assessment: Benign, BI-RAD 2 Management: Screening Mammogram of both breasts in 1 year. A negative mammogram report should not preclude additional follow up of suspicious palpable abnormalities. Patient should continue monthly self breast exam. A clinical breast exam by your physician is recommended on an annual basis and results should be correlated with mammographic findings. Electronically signed and approved by: Luis Dumont D.O. Radiologis
== END | disposition home or self-care (01) ==
LOC: RADMAMWWP 10:40
PROVIDERS: ATTEND Family Medicine
DX: Z12.31 Encounter for screening mammogram for malignant neoplasm of breast (principal); Z78.0 Asymptomatic menopausal state
CPT/HCPCS: 77063; 77067

== ENCOUNTER 2022-11-17 08:15 | Emergency (ER) | payer MEDICARE ==
[2022-11-17] MEDS ORDERED: diphenhydrAMINE 50 MG/ML 1 ML VIAL IM STA (08:34)
--- NOTE | 2022-11-17 08:44 | ED ---
Skin/Abscess/FB HPI - General Chief complaint: Skin/Abscess/Foreign Body Stated complaint: itch all over Time Seen by Provider: 11/17/22 08:27 Source: patient, RN notes reviewed Mode of arrival: ambulatory Limitations: no limitations - History of Present Illness Initial comments: Patient is an 82-year-old female presenting to the emergency room with complaints itching "all over." She states that the itching began in the paranasal region and has spread outward from there with itching now in both lower extremities and her abdomen/trunk. She reports that she saw her primary care provider regarding the symptoms approximately 1 week ago. She was placed on nystatin powder along with a "pill that she had to take twice." She reports that neither of these medications have changed her symptoms at all. She denies any changes in personal hygiene products, soaps or detergents. She denies any vaginal discharge, pelvic pain, abdominal pain fevers or chills. She states that she did notice erythremia in her perineal region however she is unsure when the redness began. Overall she is healthy and denies any significant past medical history with the exception of GERD. - Related Data Home Medications Medication Instructions Recorded Confirmed Ferrous Sulfate [Feosol] 325 mg PO DAILY 01/16/21 07/02/22 Multivitamins, Thera [Multivitamin 1 tab PO DAILY 07/02/22 07/02/22 (formulary)] Previous Rx's Medication Instructions Recorded Meclizine [Antivert] 25 mg PO TID PRN #15 tab 07/02/22 Sulfamethox-Tmp 800-160Mg [Bactrim 1 tab PO Q12HR 7 Days #14 tab 11/17/22 DS 800-160 mg] predniSONE [Deltasone] 20 mg PO BID 5 Days #10 tab 11/17/22 Allergies Allergy/AdvReac Type Severity Reaction Status Date / Time No Known Allergies Allergy Verified 11/17/22 08:22 Review of Systems ROS Statement: Those systems with pertinent positive or pertinent negative responses have been documented in the HPI. ROS Other: All systems not noted in ROS Statement are negative. Past Medical History Past Medical History: GERD/Reflux Additional Past Medical History / Comment(s): CATARACTS History of Any Multi-Drug Resistant Organisms: None Reported Past Surgical History: Appendectomy, Breast Surgery, Section, Hysterectomy Additional Past Surgical History / Comment(s): BREAST REDUCTION SX, COLONOSOCPY/EGD Past Anesthesia/Blood Transfusion Reactions: Postoperative Nausea & Vomiting (PO NV) Past Psychological History: No Psychological Hx Reported Smoking Status: Never smoker Past Alcohol Use History: None Reported Past Drug Use History: None Reported - Past Family History Father Family Medical History: Cancer Additional Family Medical History / Comment(s): COLON CANCER Mother Family Medical History: No Reported History Additional Family Medical History / Comment(s): WAS HEALTHY-LIVED TO BE 89 Sister(s) Additional Family Medical History / Comment(s): Patient had one sister that from a female cancer. One sister is alive at age 98 with no major medical problems. Patient has 4 children and one from liver cancer. 3 others have no major medical problems. General Exam Limitations: no limitations General appearance: alert, in no apparent distress Head exam: Present: atraumatic, normocephalic, normal inspection Eye exam: Present: normal appearance, PERRL, EOMI. Absent: scleral icterus, conjunctival injection, periorbital swelling ENT exam: Present: normal exam, mucous membranes moist Neck exam: Present: normal inspection, full ROM Respiratory exam: Absent: respiratory distress, accessory muscle use Cardiovascular Exam: Present: regular rate GI/Abdominal exam: Present: soft. Absent: distended, tenderness, guarding, rebound External exam: Present: erythema, swelling Extremities exam: Present: full ROM ( bilateral upper inner thigh with erythema, warm and slight swelling of the soft tissue), other. Absent: pedal edema Back exam: Present: normal inspection Neurological exam: Present: alert, oriented X3, CN II-XII intact Psychiatric exam: Present: normal affect, normal mood Skin exam: Present: erythema ( as above. no wounds, plaques, vesicles). Absent: vesicles, petechiae, abrasion Course Vital Signs 11/17/22 11/17/22 11/17/22 08:20 11:13 11:54 Temperature 98.1 F 97.5 F L 97.9 F Pulse Rate 80 77 75 Respiratory 20 16 16 Rate Blood Pressure 128/70 145/78 135/82 O2 Sat by Pulse 99 100 98 Oximetry Medical Decision Making - Medical Decision Making Was pt. sent in by a medical professional or institution (, PA, HAND MIXER, urgent care, hospital, or halfway...) When possible be specific @ -No Did you speak to anyone other than the patient for history (EMS, parent, family, police, friend...)? What history was obtained from this source @ -No Did you review nursing and triage notes (agree or disagree)? Why? @ -I reviewed and agree with nursing and triage notes Were old charts reviewed (outside hosp., previous admission, EMS record, old EKG, old radiological studies, urgent care reports/EKG's, halfway records)? Report findings @ -No old charts were reviewed Differential Diagnosis (chest pain, altered mental status, abdominal pain women, abdominal pain men, vaginal bleeding, weakness, fever, dyspnea, syncope, headache, dizziness, GI bleed, back pain, seizure, CVA, palpatations, mental health, musculoskeletal)? @ -Differential Rash: Contact dermatitis, allergic reaction, petechial rash, herpes zoster, urticaria, MRSA infection, cellulitis, erythema multiforme a, tinea corpus, impetigo, and, insect bite, atopic dermatitis, this is not meant to be an all-inclusive list. EKG interpreted by me (3pts min.). @ -None done X-rays interpreted by me (1pt min.). @ -X-ray pelvis AP: Osteoarthritic changes, no soft tissue swelling or osseous erosion. CT interpreted by me (1pt min.). @ -None done U/S interpreted by me (1pt. min.). @ -None done What testing was considered but not performed or refused? (CT, X-rays, U/S, labs)? Why? @ -None What meds were considered but not given or refused? Why? @ -None Did you discuss the management of the patient with other professionals (professionals i.e. , PA, HAND MIXER, lab, RT, psych nurse, director of social services, orthodontic band maker, teacher, industrial relations officer, upper caser)? Give summary @ -No Was smoking cessation discussed for >3mins.? @ -No Was critical care preformed (if so, how long)? @ -No Were there social determinants of health that impacted care today? How? (Home lessness, low income, unemployed, alcoholism, drug addiction, transportation, low edu. Level, literacy, decrease access to med. care, nursing home, rehab)? @ -No Was there de-escalation of care discussed even if they declined (Discuss DNR or withdrawal of care, Hospice)? DNR status @ -No What co-morbidities impacted this encounter? (DM, HTN, Smoking, COPD, CAD, Cancer, CVA, ARF, Chemo, Hep., AIDS, mental health diagnosis, sleep apnea, morbid obesity)? @ -None Was patient admitted / discharged? Hospital course, mention meds given and route, prescriptions, significant lab abnormalities, going to OR and other pertinent info. @ -82-year-old female presenting to the emergency room with complaints itching "all over." She states that the itching began in the pa ranasal region and has spread outward from there with itching now in both lower extremities and her abdomen/trunk. Exam reveals inner thigh area female with induration, warmth along with pelvic region erythema near and mild swelling. No vaginal discharge. No central clearing or plaque formation consistent with candidiasis infection. Due to area female with induration will start workup with CBC, CMP, urinalysis, lactic acid, blood cultures along with AP pelvis x-ray. Will give IM Benadryl and monitor response for itching. Continued itching despite and Benadryl without any evidence of drowsiness will give IM Solu-Medrol. Laboratory results include CBC with eosinophils slightly elevated 0.8 WBCs high normal at 10.5. CMP with creatinine slightly elevated 1.15 normal BUN chloride elevated at 108 no other abnormalities on CMP. Urinalysis with large leukocyte Estrace, a few epithelial cells and rare bacteria along with a few mucus and hyaline casts. No nitrates or ketones. Pelvis x-ray negative for osseous erosion or soft tissue swelling. Itching improved with steroid. Above findings discussed with patient at length. Advised concern for bacterial versus reactive dermatitis. Will proceed with treatment for both conditions with oral steroids and oral antibiotics. Advised may utilize [id number] hydrocortisone cream for itching as needed. Advised to keep skin clean and dry. Questions and concerns answered. Return parameters to the emergency room discussed. Will discharge home in stable condition on oral steroids and antibiotic therapy for dermatitis advising follow-up with primary care provider. Undiagnosed new problem with uncertain prognosis? @ -No Drug Therapy requiring intensive monitoring for toxicity (Heparin, Nitro, Insulin, Cardizem)? @ -No Were any procedures done? @ -No Diagnosis/symptom? @ -Dermatitis Acute, or Chronic, or Acute on Chronic? @ -Acute Uncomplicated (without systemic symptoms) or Complicated (systemic symptoms)? @ -Uncomplicated Side effects of treatment? @ -No Exacerbation, Progression, or Severe Exacerbation? @ -No Poses a threat to life or bodily function? How? (Chest pain, [place], [place], pneumonia, PE, COPD, DKA, ARF, appy, cholecystitis, CVA, Diverticulitis, Homicidal, Suicidal, threat to staff... and all critical care pts) @ -No Case discussed with Dr. Castro. - Lab Data Result diagrams: 11/17/22 08:58 11/17/22 08:58 Lab Results 11/17/22 11/17/22 11/17/22 Range/Units 08:58 08:58 08:58 WBC 10.5 (3.8-10.6) k/uL RBC 4.49 (3.80-5.40) m/uL Hgb 12.6 (11.4-16.0) gm/dL Hct 41.2 (34.0-46.0) % MCV 91.8 (80.0-100.0) fL MCH 28.0 (25.0-35.0) pg MCHC 30.5 L (31.0-37.0) g/dL RDW 14.4 (11.5-15.5) % Plt Count 410 (150-450) k/uL MPV 7.9 Neutrophils % 73 % Lymphocytes % 10 % Monocytes % 8 % Eosinophils % 7 % Basophils % 0 % Neutrophils # 7.7 (1.3-7.7) k/uL Lymphocytes # 1.1 (1.0-4.8) k/uL Monocytes # 0.9 (0-1.0) k/uL Eosinophils # 0.8 H (0-0.7) k/uL Basophils # 0.0 (0-0.2) k/uL Hypochromasia Slight Sodium 140 (137-145) mmol/L Potassium 4.1 (3.5-5.1) mmol/L Chloride 108 H (98-107) mmol/L Carbon Dioxide 25 (22-30) mmol/L Anion Gap 7 mmol/L BUN 13 (7-17) mg/dL Creatinine 1.15 H (0.52-1.04) mg/dL Est GFR (CKD-EPI)AfAm 51 (>60 ml/min/1.73 sqM) Est GFR (CKD-EPI)NonAf 44 (>60 ml/min/1.73 sqM) Glucose 97 (74-99) mg/dL Calcium 9.3 (8.4-10.2) mg/dL Total Bilirubin 0.4 (0.2-1.3) mg/dL AST 27 (14-36) U/L ALT 19 (4-34) U/L Alkaline Phosphatase 104 (38-126) U/L Total Protein 6.8 (6.3-8.2) g/dL Albumin 3.9 (3.5-5.0) g/dL Urine Color Light Yellow Urine Appearance Clear (Clear) Urine pH 5.5 (5.0-8.0) Ur Specific [place] 1.008 (1.001-1.035) Urine Protein Negative (Negative) Urine Glucose (UA) Negative (Negative) Urine Ketones Negative (Negative) Urine Blood Negative (Negative) Urine Nitrite Negative (Negative) Urine Bilirubin Negative (Negative) Urine Urobilinogen <2.0 (<2.0) mg/dL Ur Leukocyte Esterase Large H (Negative) Urine RBC 2 (0-5) /hpf Urine WBC 9 H (0-5) /hpf Ur Squamous Epith Cells 2 (0-4) /hpf Urine Bacteria Rare H (None) /hpf Hyaline Casts 4 H (0-2) /lpf Urine Mucus Few H (None) /hpf - Radiology Data Radiology results: report reviewed, image reviewed Disposition Clinical Impression: Dermatitis Disposition: HOME SELF-CARE Condition: Stable Instructions (If sedation given, give patient instructions): Dermatitis (ED) Additional Instructions: Please complete course of antibiotic and steroids as prescribed. Please keep skin clean and dry. Please follow-up with your primary care provider. Please return to the Emergency Department if symptoms worsen or any other concerns. Prescriptions: Sulfamethox-Tmp 800-160Mg [Bactrim DS 800-160 mg] 1 tab PO Q12HR 7 Days #14 tab predniSONE [Deltasone] 20 mg PO BID 5 Days #10 tab Is patient prescribed a controlled substance at d/c from ED?: No Referrals: Emily Kline MD [Primary Care Provider] - 1-2 days Time of Disposition: 10:56
[2022-11-17 09:27] LABS: Basophils % (A) 0 %; Eosinophils # (A) 0.8 k/uL (0-0.7); Eosinophils % (A) 7 %; HCT 41.2 % (34.0-46.0); HGB 12.6 gm/dL (11.4-16.0); Hypochromasia Slight; Lymphocytes # (A) 1.1 k/uL (1.0-4.8); Lymphocytes % (A) 10 %; MCHC 30.5 g/dL (31.0-37.0); MCV 91.8 fL (80.0-100.0); Mean Platelet Volume 7.9; Monocytes # (A) 0.9 k/uL (0-1.0); Monocytes % (A) 8 %; Neutrophils # (A) 7.7 k/uL (1.3-7.7); Neutrophils % (A) 73 %; Platelet Count 410 k/uL (150-450); RBC 4.49 m/uL (3.80-5.40); RDW 14.4 % (11.5-15.5); WBC 10.5 k/uL (3.8-10.6)
[2022-11-17 09:36] LABS: Albumin 3.9 g/dL (3.5-5.0); Calcium 9.3 mg/dL (8.4-10.2); Potassium 4.1 mmol/L (3.5-5.1); Total Bilirubin 0.4 mg/dL (0.2-1.3); Total Protein 6.8 g/dL (6.3-8.2)
[2022-11-17] MEDS ORDERED: methylPREDNISolone SOD SUCCI 125 MG/2 ML VIAL IV STA (09:42)
--- NOTE | 2022-11-17 10:22 | XR ---
EXAMINATION TYPE: XR pelvis AP view DATE OF EXAM: 11/17/2022 10:18 AM INDICATION: Patient age:Female; 82 years old; Reason for study: erythema; PHH. COMPARISON: None TECHNIQUE: The pelvis was examined in a single projection. FINDINGS: There is no evidence of fracture or dislocation. There is no soft tissue abnormality. No a bnormal calcifications are present. Mild osteoarthritic changes of both hips. No osseous erosions. Mu ltilevel degenerative changes of the lower spine. IMPRESSION: No acute osseous pathology.
[2022-11-17 10:47] LABS: Appearance,Urine Clear (Clear); Bacteria,Urine Rare /hpf; Bilirubin,Urine Negative (Negative); Blood,Urine Negative (Negative); Color,Urine Light Yellow; Glucose,Urine (UA) Negative (Negative); Hyaline Casts,Urine 4 /lpf (0-2); Ketones,Urine Negative (Negative); Leukocyte Esterase,Urine Large (Negative); Mucus,Urine Few /hpf; Nitrite,Urine Negative (Negative); PH, Urine 5.5 (5.0-8.0); Protein,Urine Negative (Negative); RBC,Urine 2 /hpf (0-5); Specific Gravity,Urine 1.008 (1.001-1.035); Squamous Epithelial Cell,Urine 2 /hpf (0-4); Urobilinogen,Urine <2.0 mg/dL (<2.0); WBC,Urine 9 /hpf (0-5)
[2022-11-17 11:14] VITALS: RESP 16
[2022-11-17 11:57] VITALS: BP 135/82; PULSE 75; TEMP 97.9
== END 2022-11-17 11:57 | disposition home or self-care (01) ==
LOC: EC 08:15
DX: L30.9 Dermatitis, unspecified (principal)
CPT/HCPCS: 36415; 80053; 85025; 81001; 72170; 99283; 96374; 96372; J1200; J2930

== ENCOUNTER 2022-11-29 18:58 | Emergency (ER) | payer MEDICARE ==
--- NOTE | 2022-11-29 20:22 | ED ---
General Adult HPI - General Source: patient Mode of arrival: ambulatory Limitations: no limitations <Anatoly Newman - Last Filed: 11/29/22 21:12> <Tam Cowanah Elroy - Last Filed: 11/30/22 09:46> - General Chief complaint: Nausea/Vomiting/Diarrhea Stated complaint: back pain Time Seen by Provider: 11/29/22 20:21 - History of Present Illness Initial comments: Patient presents to the ED with her daughter for evaluation. Patient states that she has had diffuse back pain, nausea and vomiting since this afternoon. Patient states that she took a dose of Tylenol without any relief. Patient denies trauma/injury/fall, fever or chills, headache, focal numbness/weakness/neuro deficit, chest pain or pressure, dyspnea, cough or cold symptoms, palpitations, dizziness, abdominal pain, diarrhea or constipation, bloody or melanotic stool, hematemesis, dysuria/hematuria/urinary frequency/urinary symptoms, decreased urine output, incontinence, leg pain/numbness/weakness, or any other symptoms or complaints. (Anatoly Newman) - Related Data Home Medications Medication Instructions Recorded Confirmed Ferrous Sulfate [Feosol] 325 mg PO DAILY 01/16/21 07/02/22 Multivitamins, Thera [Multivitamin 1 tab PO DAILY 07/02/22 07/02/22 (formulary)] Previous Rx's Medication Instructions Recorded Meclizine [Antivert] 25 mg PO TID PRN #15 tab 07/02/22 Sulfamethox-Tmp 800-160Mg [Bactrim 1 tab PO Q12HR 7 Days #14 tab 11/17/22 DS 800-160 mg] predniSONE [Deltasone] 20 mg PO BID 5 Days #10 tab 11/17/22 Amoxic-Pot Clav 875-125Mg 1 tab PO Q12HR 1 Days #14 tab 11/30/22 [Augmentin 875-125] HYDROcodone/APAP 5-325MG [[place] 1 tab PO Q4HR PRN 3 Days #18 tab 11/30/22 5-325] Lidocaine 5% Patch [Lidoderm 5% 1 each TP DAILY #30 patch 11/30/22 Patch] Ondansetron Odt [Zofran Odt] 4 mg PO Q8HR PRN #15 tab 11/30/22 Allergies Allergy/AdvReac Type Severity Reaction Status Date / Time No Known Allergies Allergy Verified 11/29/22 19:47 Review of Systems ROS Other: All systems not noted in ROS Statement are negative. <Anatoly Newman - Last Filed: 11/29/22 21:12> ROS Other: All systems not noted in ROS Statement are negative. <Radha Cowan - Last Filed: 11/30/22 09:46> ROS Statement: Those systems with pertinent positive or pertinent negative responses have been documented in the HPI. Past Medical History Past Medical History: GERD/Reflux Additional Past Medical History / Comment(s): CATARACTS History of Any Multi-Drug Resistant Organisms: None Reported Past Surgical History: Appendectomy, Breast Surgery, Section, Hysterect erik Additional Past Surgical History / Comment(s): BREAST REDUCTION SX, COL ONOSOCPY/EGD Past Anesthesia/Blood Transfusion Reactions: Postoperative Nausea & Vomiting (PONV) Past Psychological History: No Psychological Hx Reported Smoking Status: Never smoker Past Alcohol Use History: None Reported Past Drug Use History: None Reported - Past Family History Father Family Medical History: Cancer Additional Family Medical History / Comment(s): COLON CANCER Mother Family Medical History: No Reported History Additional Family Medical History / Comment(s): WAS HEALTHY-LIVED TO BE 89 Sister(s) Additional Family Medical History / Comment(s): Patient had one sister that from a female cancer. One sister is alive at age 98 with no major medical problems. Patient has 4 children and one from liver cancer. 3 others have no major medical problems. <Anatoly Newman - Last Filed: 11/29/22 21:12> General Exam Limitations: no limitations General appearance: alert, in no apparent distress Head exam: Present: normocephalic ENT exam: Present: mucous membranes moist Neck exam: Absent: tenderness Respiratory exam: Present: normal lung sounds bilaterally. Absent: respiratory distress, wheezes, rales, rhonchi, stridor Cardiovascular Exam: Present: regular rate, normal rhythm, normal heart sounds, other (Normal radial pulses bilaterally) GI/Abdominal exam: Present: soft, normal bowel sounds. Absent: distended, tenderness, guarding Extremities exam: Present: full ROM. Absent: tenderness, pedal edema, calf tenderness Back exam: Present: other (Kyphosis). Absent: tenderness, CVA tenderness (R), CVA tenderness (L) Neurological exam: Present: alert, oriented X3, other (No evidence of lower extremity neurological deficit or saddle anesthesia on exam). Absent: motor sensory deficit Psychiatric exam: Present: normal affect, normal mood Skin exam: Present: warm, dry, intact, normal color <Anatoyl Newman - Last Filed: 11/29/22 21:12> Course Vital Signs 11/29/22 11/29/22 11/30/22 19:47 23:53 01:11 Temperature 97.0 F L 97.9 F 98.2 F Pulse Rate 77 87 75 Respiratory 20 16 16 Rate Blood Pressure 131/69 123/72 153/82 O2 Sat by Pulse 100 96 98 Oximetry EKG Findings - EKG Comments: EKG Findings:: ED physician interpretation (interpreted by me): Normal sinus rhythm, ventricular rate of 74 bpm, no ectopy, normal OH and QRS intervals, normal QT interval, normal axis, no ST or T-wave abnormality <Anatoly Newman - Last Filed: 11/29/22 21:12> Medical Decision Making <Anatoly Newman - Last Filed: 11/29/22 21:12> - Lab Data Result diagrams: 11/29/22 21:14 11/29/22 21:14 <Radha Cowan - Last Filed: 11/30/22 09:46> - Medical Decision Making Was pt. sent in by a medical professional or institution (, PA, MAINTAINER CENTRAL OFFICE, urgent care, hospital, or detention...) When possible be specific @ -[No] Did you speak to anyone other than the patient for history (EMS, parent, family, police, friend...)? What history was obtained from this source @ -[No] Did you review nursing and triage notes (agree or disagree)? Why? @ -[I reviewed and agree with nursing and triage notes] Were old charts reviewed (outside hosp., previous admission, EMS record, old EKG, old radiological studies, urgent care reports/EKG's, detention records)? Report findings @ -[No old charts were reviewed] Differential Diagnosis (chest pain, altered mental status, abdominal pain women, abdominal pain men, vaginal bleeding, weakness, fever, dyspnea, syncope, headache, dizziness, GI bleed, back pain, seizure, CVA, palpatations, mental health, musculoskeletal)? @ -[Back pain, muscle strain, muscle spasm, DDD, DJD, herniated disc disease, fracture, renal stone, renal disease, UTI, pyelonephritis, AAA, nausea, vomiting, gastroneuritis, gastritis, GERD, pancreatitis, bowel obstruction, viral illness, food toxicity, dehydration, electrolyte abnormality] EKG interpreted by me (3pts min.). @ -[As above] X-rays interpreted by me (1pt min.). @ -[Pending] CT interpreted by me (1pt min.). @ -[Pending] U/S interpreted by me (1pt. min.). @ -[None done] What testing was considered but not performed or refused? (CT, X-rays, U/S, labs)? Why? @ -[None] What meds were considered but not given or refused? Why? @ -[None] Did you discuss the management of the patient with other professionals (professionals i.e. , PA, MAINTAINER [employer]TRAL OFFICE, lab, RT, psych nurse, social welfare clerk, freezing room worker, teacher, special officer, heel caser)? Give summary @ -[No] Was smoking cessation discussed for >3mins.? @ -[No] Was critical care preformed (if so, how long)? @ -[No] Were there social determinants of health that impacted care today? How? (Homelessness, low income, unemployed, alcoholism, drug addiction, transportation, low edu. Level, literacy, decrease access to med. care, fci, rehab)? @ -[No] Was there de-escalation of care discussed even if they declined (Discuss DNR or withdrawal of care, Hospice)? DNR status @ -[No] What co-morbidities impacted this encounter? (DM, HTN, Smoking, COPD, CAD, Cancer, CVA, ARF, Chemo, Hep., AIDS, mental health diagnosis, sleep apnea, morbid obesity)? @ -[None] Was patient admitted / discharged? Hospital course, mention meds given and route, prescriptions, significant lab abnormalities, going to OR and other pertinent info. @ -[2111: Patient was endorsed to Dr. Cowan (secondary to shift change) with the patient's labs and imaging studies still pending. Dr. Cowan to follow up on the patient's test results and take over care of the patient at this time.] (Anatoly Newman) Patient was signed out to me from Dr. Newman. I did review the patient's laboratory studies which admits a white count of 25. CT of the abdomen and pelvis demonstrates duodenal diverticulum with minimal fat stranding adjacent. Distended small bowel loops concerning for enterocolitis. Compression deformity of T12 with 40% height loss. He is results are discussed with the patient. Did recommend admission however patient wanted to go home. She was given antibiotics in the emergency department. She will be discharged home with [place] and Lidoderm patches for her back pain. Patient will also be initiated on antibiotics for her elevated white blood cell count with concern for duodenal diverticulitis. She is to follow-up with her doctor. Must have repeat white blood cell count performed this week. Return immediately for any worsening symptoms. Patient was agreeable this and she was discharged home stable condition (Radha Cowan) - Lab Data Lab Results 11/29/22 11/29/22 11/29/22 Range/Units 21:14 21:14 21:14 WBC 25.0 H (3.8-10.6) k/uL RBC 4.32 (3.80-5.40) m/uL Hgb 12.8 (11.4-16.0) gm/dL Hct 39.1 (34.0-46.0) % MCV 90.5 (80.0-100.0) fL MCH 29.6 (25.0-35.0) pg MCHC 32.7 (31.0-37.0) g/dL RDW 14.2 (11.5-15.5) % Plt Count 345 (150-450) k/uL MPV 8.3 Neutrophils % 90 % Lymphocytes % 2 % Monocytes % 7 % Eosinophils % 0 % Basophils % 0 % Neutrophils # 22.5 H (1.3-7.7) k/uL Lymphocytes # 0.5 L (1.0-4.8) k/uL Monocytes # 1.8 H (0-1.0) k/uL Eosinophils # 0.1 (0-0.7) k/uL Basophils # 0.0 (0-0.2) k/uL PT (9.0-12.0) sec INR (<1.2) APTT (22.0-30.0) sec Sodium 139 (137-145) mmol/L Potassium 4.2 (3.5-5.1) mmol/L Chloride 106 (98-107) mmol/L Carbon Dioxide 24 (22-30) mmol/L Anion Gap 9 mmol/L BUN 24 H (7-17) mg/dL Creatinine 1.09 H (0.52-1.04) mg/dL Est GFR (CKD-EPI)AfAm 55 (>60 ml/min/1.73 sqM) Est GFR (CKD-EPI)NonAf 47 (>60 ml/min/1.73 sqM) Glucose 105 H (74-99) mg/dL Calcium 9.1 (8.4-10.2) mg/dL Total Bilirubin 0.3 (0.2-1.3) mg/dL AST 36 (14-36) U/L ALT 29 (4-34) U/L Alkaline Phosphatase 114 (38-126) U/L Troponin I <0.012 (0.000-0.034) ng/mL Total Protein 6.4 (6.3-8.2) g/dL Albumin 3.7 (3.5-5.0) g/dL Lipase 317 H (23-300) U/L Urine Color Urine Appearance (Clear) Urine pH (5.0-8.0) Ur Specific [place] (1.001-1.035) Urine Protein (Negative) Urine Glucose (UA) (Negative) Urine Ketones (Negative) Urine Blood (Negative) Urine Nitrite (Negative) Urine Bilirubin (Negative) Urine Urobilinogen (<2.0) mg/dL Ur Leukocyte Esterase (Negative) Urine RBC (0-5) /hpf Urine WBC (0-5) /hpf Ur Squamous Epith Cells (0-4) /hpf Urine Mucus (None) /hpf 11/29/22 11/29/22 Range/Units 21:14 22:30 WBC (3.8-10.6) k/uL RBC (3.80-5.40) m/uL Hgb (11.4-16.0) gm/dL Hct (34.0-46.0) % MCV (80.0-100.0) fL MCH (25.0-35.0) pg MCHC (31.0-37.0) g/dL RDW (11.5-15.5) % Plt Count (150-450) k/uL MPV Neutrophils % % Lymphocytes % % Monocytes % % Eosinophils % % Basophils % % Neutrophils # (1.3-7.7) k/uL Lymphocytes # (1.0-4.8) k/uL Monocytes # (0-1.0) k/uL Eosinophils # (0-0.7) k/uL Basophils # (0-0.2) k/uL PT 9.5 (9.0-12.0) sec INR 0.9 (<1.2) APTT 22.7 (22.0-30.0) sec Sodium (137-145) mmol/L Potassium (3.5-5.1) mmol/L Chloride (98-107) mmol/L Carbon Dioxide (22-30) mmol/L Anion Gap mmol/L BUN (7-17) mg/dL Creatinine (0.52-1.04) mg/dL Est GFR (CKD-EPI)AfAm (>60 ml/min/1.73 sqM) Est GFR (CKD-EPI)NonAf (>60 ml/min/1.73 sqM) Glucose (74-99) mg/dL Calcium (8.4-10.2) mg/dL Total Bilirubin (0.2-1.3) mg/dL AST (14-36) U/L ALT (4-34) U/L Alkaline Phosphatase (38-126) U/L Troponin I (0.000-0.034) ng/mL Total Protein (6.3-8.2) g/dL Albumin (3.5-5.0) g/dL Lipase (23-300) U/L Urine Color Yellow Urine Appearance Clear (Clear) Urine pH 5.5 (5.0-8.0) Ur Specific [place] 1.031 (1.001-1.035) Urine Protein Negative (Negative) Urine Glucose (UA) Negative (Negative) Urine Ketones Negative (Negative) Urine Blood Negative (Negative) Urine Nitrite Negative (Negative) Urine Bilirubin Negative (Negative) Urine Urobilinogen <2.0 (<2.0) mg/dL Ur Leukocyte Esterase Moderate H (Negative) Urine RBC 2 (0-5) /hpf Urine WBC 4 (0-5) /hpf Ur Squamous Epith Cells 2 (0-4) /hpf Urine Mucus Rare H (None) /hpf Disposition <Anatoly Newman - Last Filed: 11/29/22 21:12> Is patient prescribed a controlled substance at d/c from ED?: Yes When asked, does pt state using other controlled substances?: No If prescribed controlled substance>3 days was MAPS reviewed?: Prescribed <3 Days Time of Disposition: 00:52 <Radha Cowan - Last Filed: 11/30/22 09:46> Clinical Impression: Nausea & vomiting, Back pain, Compression fracture, Enterocolitis, Leukocytosis Disposition: HOME SELF-CARE Condition: Serious Instructions (If sedation given, give patient instructions): Vertebral Compression Fracture (ED), Gastroenteritis (ED) Additional Instructions: Please follow-up with your primary care physician. They need to repeat a white blood cell count within the next week. Have the pharmacy direct you to the over the counter patches if the pharmacy is charging a high cost for the prescription ones. Return for any new or worsening symptoms Prescriptions: Amoxic-Pot Clav 875-125Mg [Augmentin 875-125] 1 tab PO Q12HR 1 Days #14 tab Lidocaine 5% Patch [Lidoderm 5% Patch] 1 each TP DAILY #30 patch HYDROcodone/APAP 5-325MG [[place] 5-325] 1 tab PO Q4HR PRN 3 Days #18 tab PRN Reason: Pain Ondansetron Odt [Zofran Odt] 4 mg PO Q8HR PRN #15 tab PRN Reason: Nausea Referrals: Emily Kline MD [Primary Care Provider] - 1-2 days
[2022-11-29] MEDS ORDERED: ONDANSETRON 4 MG/2 ML VIAL IVP STA (20:38)
[2022-11-29] MEDS ORDERED: SODIUM CHLORIDE 0.9% 500 ML 500 ML IV STA (20:38)
[2022-11-29] MEDS ORDERED: HYDROmorphone 0.5 MG/0.5 ML SYRINGE IVP STA (20:38)
[2022-11-29 21:50] LABS: INR 0.9 (<1.2); Partial Thromboplastin Time 22.7 sec (22.0-30.0); Prothrombin Time 9.5 sec (9.0-12.0)
[2022-11-29 21:59] LABS: Albumin 3.7 g/dL (3.5-5.0); Calcium 9.1 mg/dL (8.4-10.2); Potassium 4.2 mmol/L (3.5-5.1); Total Bilirubin 0.3 mg/dL (0.2-1.3); Total Protein 6.4 g/dL (6.3-8.2)
--- NOTE | 2022-11-29 22:02 | XR ---
EXAMINATION TYPE: XR chest 1V portable DATE OF EXAM: 11/29/2022 9:42 PM COMPARISON: Chest radiographs from 06/30/2022 TECHNIQUE: XR chest 1V portable Frontal view of the chest. CLINICAL INDICATION:Female, 82 years old with history of back pain, vomiting; FINDINGS: Lungs/Pleura: There is no evidence of pleural effusion, focal consolidation, or pneumothorax. Pulmonary vascularity: Unremarkable. Heart/mediastinum: Cardiomediastinal silhouette is enlarged . Musculoskeletal: No acute osseous pathology. IMPRESSION: 1. No acute cardiopulmonary disease/process. 2. Cardiomegaly.
[2022-11-29 22:18] LABS: Basophils % (A) 0 %; Eosinophils # (A) 0.1 k/uL (0-0.7); Eosinophils % (A) 0 %; HCT 39.1 % (34.0-46.0); HGB 12.8 gm/dL (11.4-16.0); Lymphocytes # (A) 0.5 k/uL (1.0-4.8); Lymphocytes % (A) 2 %; MCH 29.6 pg (25.0-35.0); MCHC 32.7 g/dL (31.0-37.0); MCV 90.5 fL (80.0-100.0); Mean Platelet Volume 8.3; Monocytes # (A) 1.8 k/uL (0-1.0); Monocytes % (A) 7 %; Neutrophils # (A) 22.5 k/uL (1.3-7.7); Neutrophils % (A) 90 %; Platelet Count 345 k/uL (150-450); RBC 4.32 m/uL (3.80-5.40); RDW 14.2 % (11.5-15.5)
[2022-11-29 23:14] LABS: Appearance,Urine Clear (Clear); Bilirubin,Urine Negative (Negative); Blood,Urine Negative (Negative); Color,Urine Yellow; Glucose,Urine (UA) Negative (Negative); Ketones,Urine Negative (Negative); Leukocyte Esterase,Urine Moderate (Negative); Mucus,Urine Rare /hpf; Nitrite,Urine Negative (Negative); PH, Urine 5.5 (5.0-8.0); Protein,Urine Negative (Negative); RBC,Urine 2 /hpf (0-5); Specific Gravity,Urine 1.031 (1.001-1.035); Squamous Epithelial Cell,Urine 2 /hpf (0-4); Urobilinogen,Urine <2.0 mg/dL (<2.0); WBC,Urine 4 /hpf (0-5)
[2022-11-29 23:55] VITALS: RESP 16
--- NOTE | 2022-11-30 00:27 | CT ---
EXAM: CT Abdomen and Pelvis With Intravenous Contrast CLINICAL HISTORY: ITS.REASON CT Reason: Back pain and vomiting TECHNIQUE: Axial computed tomography images of the abdomen and pelvis with intravenous contrast. CTDI is 22.67 mGy and DLP is 1022.4 mGy-cm. This CT exam was performed using one or more of the following dose reduction techniques: automated exposure control, adjustment of the mA and/or kV according to patient size, and/or use of iterative reconstruction technique. COMPARISON: CT Abdomen Pelvis dated 02/27/15 FINDINGS: Lung bases: Mild basilar atelectasis. Mediastinum: Moderate hiatal hernia containing part of the stomach, similar to the prior. ABDOMEN: Liver: Unremarkable. No mass. Gallbladder and bile ducts: Unremarkable. No calcified stones. No ductal dilation. Pancreas: See below. No mass. No ductal dilation. Spleen: Unremarkable. No splenomegaly. Adrenals: Unremarkable. No mass. Kidneys and ureters: Unremarkable. No solid mass. No hydronephrosis. Stomach and bowel: Duodenal diverticulum. Query minimal fat stranding adjacent to the head of the pancreas and duodenal diverticulum versus volume averaging. Similar appearance on the prior. Few distended small bowel loops. No transition point to suggest obstruction. Query minimal wall thickening of the proximal colon, and minimal surrounding stranding. Colonic diverticulosis without evidence of acute diverticulitis. PELVIS: Appendix: Appendix not visualized. No secondary findings of appendicitis. Bladder: Unremarkable. No mass. Reproductive: Absent uterus. ABDOMEN and PELVIS: Intraperitoneal space: Unremarkable. No free air. No significant fluid collection. Bones/joints: T12 compression deformity with approximately 40% anterior height loss. Mild retropulsion. New since the prior, although age indeterminate. Stable right iliac bone defect. No dislocation. Soft tissues: Unremarkable. Vasculature: Moderate aortoiliac atherosclerotic calcifications. No abdominal aortic aneurysm. Lymph nodes: Unremarkable. No enlarged lymph nodes. IMPRESSION: 1. Duodenal diverticulum. Query minimal fat stranding adjacent to the head of the pancreas and duodenal diverticulum versus volume averaging. Similar appearance on the prior. Correlate for pancreatitis, duodenitis, duodenal diverticulitis. No free air or fluid collection. 2. Few distended small bowel loops. Query minimal wall thickening of the proximal colon, and minimal surrounding stranding. Correlate for enterocolitis. 3. T12 compression deformity with approximately 40% anterior height loss. Mild retropulsion. New since the prior, although age indeterminate. 4. Colonic diverticulosis without evidence of acute diverticulitis. 5. Moderate hiatal hernia containing part of the stomach, similar to the prior.
[2022-11-30] MEDS ORDERED: metroNIDAZOLE 500 MG TAB PO STA (00:44)
[2022-11-30] MEDS ORDERED: cefTRIAXone IN SWFI 1,000 MG/10 ML SYRINGE IVP STA (00:44)
[2022-11-30] MEDS ORDERED: ONDANSETRON 4 MG ODT STARTER PACK 2 TAB BTL PO STA (00:45)
[2022-11-30 01:12] VITALS: BP 153/82; PULSE 75; TEMP 98.2
== END 2022-11-30 01:24 | disposition home or self-care (01) ==
LOC: EC 18:58
DX: S22.080A Wedge compression fracture of T11-T12 vertebra, initial encounter for closed fracture (principal); K52.9 Noninfective gastroenteritis and colitis, unspecified; D72.829 Elevated white blood cell count, unspecified; X58.XXXA Exposure to other specified factors, initial encounter
CPT/HCPCS: 36415; 93005; 80053; 83690; 84484; 85025; 85610; 85730; 81001; 71045; 74177; 99285; 96374; 96375 ×2; 96361 ×2; J2405; J0696; S0119; J1170; Q9967

== ENCOUNTER → 2022-12-29 | Outpatient (CLI) | payer MEDICARE ==
[2022-12-29 11:19] VITALS: BP 171/88; PULSE 84; RESP 17; TEMP 97.5
--- NOTE | 2022-12-29 12:40 | P.HPOB ---
History of Present Illness H&P Date: 12/29/22 Chief Complaint: The patient is here for her routine gynecologic exam and ma mmogram. This is a 82-year-old 003 with an LMP of 1984. The patient is here to reestablish with this office. She was last seen here in 2016. She is status post VIKTOR/BSO for benign reasons. She was treated for suspected lichen sclerosis of the vulva with Temovate cream. She states this did help with her symptoms at that time. She had done well until about 3 or 4 weeks ago when she started having fairly severe pruritus of the vulva. Her PCP thought that this may be a yeast infection and was treated with some type of powder which did not help. The pruritus became so severe that she went to the emergency room and she states she was given an antibiotic which gave some temporary relief, but she still continues to have fairly severe pruritus. She denies any vaginal discharge. She is otherwise without gynecologic complaints. Review of Systems The patient's weight has been stable over the last year. She denies respiratory, cardiac, or G.I. problems. Past Medical History Past Medical History: GERD/Reflux Additional Past Medical History / Comment(s): CATARACTS. 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 History of lichen sclerosus of the vulva. History of Any Multi-Drug Resistant Organisms: None Reported Past Surgical History: Appendectomy, Breast Surgery, Section, Hysterectomy Additional Past Surgical History / Comment(s): BREAST REDUCTION SX, COLONOSOCPY/EGD. section 3. VIKTOR/BSO in 1984. Past Anesthesia/Blood Transfusion Reactions: Postoperative Nausea & Vomiting (PONV) Past Psychological History: No Psychological Hx Reported (She denies current depression.) Smoking Status: Never smoker Past Alcohol Use History: None Reported Additional Past Alcohol Use History / Comment(s): Patient is a lifelong nonsmoker. No marijuana or alcohol use. Past Drug Use History: None Reported Additional History: She is a since 2018. She has not been sexually active since 2017. - Past Family History Father Family Medical History: Cancer, Diabetes Mellitus Additional Family Medical History / Comment(s): COLON CANCER Mother Family Medical History: No Reported History Additional Family Medical History / Comment(s): WAS HEALTHY-LIVED TO BE 89 Sister(s) Family Medical History: Cancer Additional Family Medical History / Comment(s): Patient had one sister that from a female cancer. She believes it was uterine cancer. Son(s) Family Medical History: Cancer Additional Family Medical History / Comment(s): Liver cancer. Medications and Allergies Home Medications Medication Instructions Recorded Confirmed Type Ferrous Sulfate [Feosol] 325 mg PO DAILY 01/16/21 12/29/22 History Meclizine [Antivert] 25 mg PO TID PRN #15 tab 07/02/22 12/29/22 Rx Multivitamins, Thera [Multivitamin 1 tab PO DAILY 07/02/22 12/29/22 History (formulary)] Sulfamethox-Tmp 800-160Mg [Bactrim 1 tab PO Q12HR 7 Days #14 tab 11/17/22 12/29/22 Rx DS 800-160 mg] predniSONE [Deltasone] 20 mg PO BID 5 Days #10 tab 11/17/22 12/29/22 Rx Amoxic-Pot Clav 875-125Mg 1 tab PO Q12HR 1 Days #14 tab 11/30/22 12/29/22 Rx [Augmentin 875-125] HYDROcodone/APAP 5-325MG [[place] 1 tab PO Q4HR PRN 3 Days #18 tab 11/30/22 12/29/22 Rx 5-325] Lidocaine 5% Patch [Lidoderm 5% 1 each TP DAILY #30 patch 11/30/22 12/29/22 Rx Patch] Ondansetron Odt [Zofran Odt] 4 mg PO Q8HR PRN #15 tab 11/30/22 12/29/22 Rx Allergies Allergy/AdvReac Type Severity Reaction Status Date / Time No Known Allergies Allergy Verified 12/29/22 11:16 Exam Vital Signs Temp Pulse Resp BP Pulse Ox 12/29/22 11:17 97.5 F L 84 17 171/88 96 Intake and Output 12/28/22 12/29/22 12/29/22 22:59 06:59 14:59 Other: Weight 78.925 kg Height 5 foot 1 inch, weight 174 pounds, BMI 32.9. This is a well-developed well-nourished white female who is alert and oriented times 3 in no acute distress. HEENT: Within normal limits. NECK: Supple without mass or thyromegaly. CHEST AND LUNGS: Clear to auscultation. HEART: Regular rate and rhythm. BREASTS: Are without mass or discharge. AXILLARY EXAM: Negative for adenopathy. BACK: Negative for CVA tenderness. There is mild kyphosis. ABDOMEN: Soft, nontender, without palpable masses. PELVIC EXAM: External genitalia reveals moderate atrophy with generalized pallor involving the bilateral vulva extending from the clitoris to the perineum and also extends to the perianal area. This has the hourglass appearance and is consistent with lichen sclerosus. There are no focal lesions. There is no ulceration. Vagina appears normal with moderate atrophy. There is no unusual discharge. There is no evidence of prolapse. Bimanual examination is negative for mass or tenderness. RECTAL EXAM: Rectovaginal exam is negative for mass or tenderness and is negative for occult blood. EXTREMITIES: Nontender. IMPRESSION: 1. 82-year-old menopausal female status post VIKTOR/BSO for benign reasons, with lichen sclerosus of the vulva with moderate to severe pruritus. 2. Elevated blood pressure. PLAN: 1. Pap smears have been discontinued. 2. Self breast awareness was discussed with the patient. We have also discussed symptoms associated with inflammatory breast cancer. 3. Screening mammogram was done on 10/21/2022 and was benign. She will continue to do these yearly. 4. Osteoporosis prevention was discussed. I have stressed the importance of adequate calcium, vitamin D and regular exercise. Recommended amounts of calcium and vitamin D were also discussed. An order slip for the bone density test will be mailed to the patient. 5. We have had a long discussion regarding lichen sclerosis of the vulva. She understands this is a chronic condition. I have asked her to avoid over washing with soap as well as avoid rubbing and scratching. We will use Temovate ointment 0.05% twice a day as needed for itching. She will gradually wean off of this as symptoms improve. She can also use petroleum jelly or Aquaphor as a protective layer once or twice daily. If symptoms are not improving she was instructed to return within the next 2 or 3 months. If her symptoms do improve with this treatment, she will will return at least yearly for reevaluation. Electronic prescription for the Temovate ointment will be sent to [facility] in [place]. 6. She was advised to return in one year for her annual well woman exam and as needed.
--- NOTE | 2023-01-02 10:35 | P.PN ---
Progress Note - Text Progress Note Date: 01/02/23 Affirm vaginitis panel was negative for Joi, Gardnerella, and Trichomonas. A message was left on the patients voicemail on 01/02/23 stating no evidence of a vaginal yeast infection and no infectious vaginitis was found. She will proceed to use the Temovate ointment as directed and to call if questions or problems.
== END ==
LOC: WWCWWP 11:08
PROVIDERS: ATTEND Obstetrics & Gynecology
DX: Z01.419 Encounter for gynecological examination (general) (routine) without abnormal findings (principal); K21.9 Gastro-esophageal reflux disease without esophagitis; L29.9 Pruritus, unspecified; N95.1 Menopausal and female climacteric states; Z79.52 Long term (current) use of systemic steroids; Z90.710 Acquired absence of both cervix and uterus